=== PATIENT | male | born 1960 | race Caucasian/White ===

== ENCOUNTER 2017-08-07 04:11 | Observation (INO) | payer OTHER ==
[2017-08-07] MEDS ORDERED: HYOSCYAMINE SULFATE ODT 0.125 MG TAB.SUBL SL ONE (04:30)
[2017-08-07] MEDS: 0.9 % SODIUM CHLORIDE 1000ML 1,000 ML IV SCH ×2 (04:30→05:32)
[2017-08-07] MEDS ORDERED: ONDANSETRON HCL IV 4 MG/2 ML VIAL IVP ONE (04:30)
--- NOTE | 2017-08-07 04:37 | Emergency Department Record ---
History of Present Illness - General Chief Complaint: Abdominal Pain Stated Complaint: VOMITING Time Seen by Provider: 08/07/17 04:29 Source: Patient Mode of Arrival: Ambulatory Limitations: No limitations - History of Present Illness Initial Comments: 56 yo male presents to ED for evaluation of nausea, vomiting, and loose stools that began last night after eating chili. Patient reports subjective chills, denies fever symptoms, cough, or recent illness. Patient denies health problems at his baseline, denies chest pain or difficulty breathing. Patient does report abdominal pain symptoms, denies previous abdominal surgery. MD Complaint: Abdominal pain Onset/Timin -: Hour(s) Location: Diffuse Radiation: None Migration to: No migration Severity: Moderate Quality: Cramping Consistency: Constant Improves With: Nothing Worsens With: Nothing Context: Other Associated Symptoms: Nausea, Vomiting - Related Data Home Medications Medication Instructions Recorded Confirmed Last Taken No Home Med [NO HOME MEDS] 08/07/17 08/07/17 Unknown Allergies Allergy/AdvReac Type Severity Reaction Status Date / Time No Known Drug Allergies Allergy Verified 08/07/17 04:23 Travel Screening - Travel/Exposure Within Last 30 Days Have you traveled within the last 30 days?: No - Travel Symptoms Symptom Screening: Diarrhea Review of Systems Constitutional: Denies: Chills, Fever, Malaise, Night sweats Eyes: Denies: Eye discharge, Eye pain ENT: Denies: Congestion, Ear pain, Epistaxis Respiratory: Denies: Cough, Dyspnea Cardiovascular: Denies: Chest pain, Dyspnea on exertion Endocrine: Denies: Fatigue, Heat or cold intolerance Gastrointestinal: Reports: Abdominal pain, Nausea, Vomiting Genitourinary: Denies: Incontinence, Retention Musculoskeletal: Denies: Arthralgia, Back pain Skin: Denies: Bruising, Change in color Neurological: Denies: Abnormal gait, Confusion, Headache, Seizure Psychiatric: Denies: Anxiety Hematological/Lymphatic: Denies: Anemia, Blood Clots Past Medical History - SOCIAL HISTORY Smoking Status: Former smoker Alcohol Use: Occasional Drug Use: Heavy Drug Use Detail:: Marijuana - RESPIRATORY Hx Respiratory Disorders: No - CARDIOVASCULAR Hx Cardio Disorders: No - NEURO Hx Neuro Disorders: No - GI Hx GI Disorders: No - Hx Genitourinary Disorders: No - ENDOCRINE Hx Endocrine Disorders: No - MUSCULOSKELETAL Hx Musculoskeletal Disorders: No - PSYCH Hx Psych Problems: No - HEMATOLOGY/ONCOLOGY Hx Hematology/Oncology Disorders: No Family Medical History Any Significant Family History?: No Physical Exam - General General Appearance: Alert, Oriented x3, Cooperative, Moderate distress, Other ( Patient appears diaphorectic on examination, resting tremor on examination) Limitations: No limitations - Head Head exam: Atraumatic, Normocephalic, Normal inspection Head exam detail: negative: Abrasion, Contusion, Carlisle's sign, General tenderness, Hematoma, Laceration - Eye Eye exam: Normal appearance. negative: Conjunctival injection, Periorbital swelling, Periorbital tenderness, Scleral icterus - ENT Ear exam: negative: Auricular hematoma, Auricular trauma Nasal Exam: negative: Active bleeding, Discharge, Dried blood, Foreign body Mouth exam: negative: Drooling, Laceration, Muffled voice, Tongue elevation - Neck Neck exam: Normal inspection. negative: Meningismus, Tenderness - Respiratory Respiratory exam: Normal lung sounds bilaterally. negative: Rales, Respiratory distress, Rhonchi, Stridor - Cardiovascular Cardiovascular Exam: Regular rate, Normal rhythm, Normal heart sounds - GI/Abdominal GI/Abdominal exam: Soft, Tenderness (Diffuse TTP, no rebound or guarding present on examination). negative: Rebound, Rigid - Rectal Rectal exam: Deferred - exam: Deferred - Extremities Extremities exam: Normal inspection. negative: Calf tenderness, Pedal edema, Tenderness - Back Back exam: Denies: CVA tenderness (R), CVA tenderness (L) - Neurological Neurological exam: Alert, Normal gait, Oriented X3 - Psychiatric Psychiatric exam: Normal affect, Normal mood - Skin Skin exam: Normal color. negative: Abrasion Type of lesion: negative: abrasion Course - Reevaluation(s) Reevaluation #1: 08/07/17 04:47 EKG: NSR 67 Normal axis, normal intervals No acute ST-T wave changes Reevaluation #2: 08/07/17 05:12 Labs reviewed, Lipase 271, labs are otherwise grossly unremarkable for an acute process. Patient is currently in CT imaging. Reevaluation #3: 08/07/17 05:41 UA reviewed and appears negative for infection. Reglan and Benadryl ordered for continued nausea/vomiting symptoms. Reevaluation #4: 08/07/17 06:04 CT Abdomen and Pelvis: Fat containing inguinal hernia, no bowel involvement Mild wall thickening of the colon, colon is relatively decompressed Patient reassessed, reports that he is still nauseated, vomiting improved. Will admit for further evaluation and treatment of his continued nausea symptoms. Reevaluation #5: 08/07/17 06:48 Case was discussed with Etelvina Barber, will accept admission at this time. Medical Decision Making - Lab Data Result diagrams: 08/07/17 04:30 08/07/17 04:30 Disposition Disposition: Admit Clinical Impression: Nausea & vomiting Qualifiers: Vomiting type: unspecified Vomiting Intractability: intractable Qualified Code( s): R11.2 - Nausea with vomiting, unspecified Pancreatitis Qualifiers: Chronicity: acute Pancreatitis type: other Acute pancreatitis complication: unspecified Qualified Code(s): K85.80 - Other acute pancreatitis without necrosis or infection Disposition: Still a Patient at [facility] Decision to Admit: Admit from ER Decision to Admit Date: 08/07/17 Decision to Admit Time: 06:08 Condition: (2) Stable Time of Disposition: 06:08 Quality - Quality Measures Quality Measures: N/A - Blood Pressure Screening Does Patient Have Any of the Following: No Blood Pressure Classification: Hypertensive Reading Systolic Measurement: 165 Diastolic Measurement: 101 Screening for High Blood Pressure: < First Hypertensive BP, F/U Documented > [ [id number]] First Hypertensive Follow-up Interventions: Referral to alternative/primary care provider.
[2017-08-07 04:38] LABS: BASO % 0.3 % (0-6); EOS % 1.6 % (0-6); GRAN % 74.7 % (47-80); LYMPH % 16.5 % (16-45); MEAN CELL VOLUME 87.9 fl (81-97); MEAN CORPUSCULAR HEMOGLOBIN 29.9 pg (27-33); MEAN PLATELET VOLUME 9.3 fl (7.4-10.4); MONO % 6.9 % (0-9); PLATELET COUNT 372 K/uL (130-400); RED BLOOD COUNT 5.35 M/uL (4.40-5.70); RED CELL DISTRIBUTION WIDTH 13.5 % (11.5-14.5); WHITE BLOOD COUNT W/O DIFF 11.1 K/uL (4.2-12.2)
[2017-08-07 04:51] LABS: BLOOD UREA NITROGEN 17 mg/dL (6-20); CREATININE 1.1 mg/dL (0.7-1.2); EST GLOMERULAR FILTRATION RATE > 60 mL/min
[2017-08-07 04:52] LABS: TOTAL PROTEIN 7.3 g/dL (6.6-8.7)
[2017-08-07 04:54] LABS: GLUCOSE,RANDOM 153 mg/dL (74-109)
[2017-08-07 04:56] LABS: ALT/SGPT 14 U/L (<41)
[2017-08-07 04:57] LABS: ALB/GLOB RATIO 1.9 (1.1-1.8); ALBUMIN 4.8 g/dL (4.0-5.0); ALKALINE PHOSPHATASE 64 U/L (40-129); AST/SGOT 15 U/L (10.0-50.0); LIPASE 271 U/L (13-60)
[2017-08-07] MEDS ORDERED: 0.9 % SODIUM CHLORIDE 1000ML 1,000 ML IV SCH (05:15)
[2017-08-07 05:18] LABS: URINE APPEARANCE CLOUDY; URINE BILIRUBIN NEGATIVE (NEGATIVE); URINE COLOR YELLOW; URINE GLUCOSE (UA) NEGATIVE (NEGATIVE); URINE KETONE TRACE (NEGATIVE); URINE PROTEIN NEGATIVE (NEGATIVE); URINE UROBILINOGEN 0.2 E.U./dL (0.20 - 1.00)
[2017-08-07 05:19] LABS: URINE BLOOD TRACE-LYSED (NEGATIVE); URINE LEUKOCYTE ESTERASE NEGATIVE (NEGATIVE); URINE NITRITE NEGATIVE (NEGATIVE)
[2017-08-07 05:21] LABS: URINE EPITHELIAL CELLS 0 - 2 (FEW); URINE RBC 0 - 2 (NONE SEEN); URINE WBC 0 - 2 (0-2/hpf)
[2017-08-07 05:22] LABS: URINE AMORPHOUS SEDIMENT 1+; URINE BACTERIA NONE SEEN
[2017-08-07] MEDS ORDERED: DIPHENHYDRAMINE HCL IV 50 MG/ML VIAL IVP ONE (05:33)
[2017-08-07] MEDS ORDERED: METOCLOPRAMIDE HCL 10 MG/2 ML VIAL IVP ONE (05:33)
--- NOTE | 2017-08-07 07:48 | History & Physical ---
History of Present Illness - Date of Service Date of Service for History & Physical: 08/07/17 - History of Present Illness Admitting Diagnosis: Intractable nausea/vomiting. Mild pancreatitis History of Present Illness: 56yo male with CC of nausea and vomiting. He has history of marijuana use and occasional etoh use. Patient presented to the ED last night with intractable nausea and multiple episodes of vomiting. He had one episode of loose stool and was having generalized stomach cramping. Patient felt his symptoms were related to some bad chili he had eaten about 12 hours prior. While in the ED, Patient had EKG that showed NSR with rate of [address] changes. BP was elevated at 162/109. He had CBC and CMP which were both unremarkable. His lipase was elevated at 270. He underwent CT scan of the abdomen which showed possible mild thickening of the colon wall vs decreased distension. NO oral contrast was utilized. No other acute abnormalities. He received zofran, reglan, hyocosamine, and bendadryl with minimal relief of his vomiting. He was admitted for intractable nausea. 08/07/17- Patient states he continues to have diffuse stomach cramping that is beginning to localize in the left upper part of his abdomen. He reports chills but no fever. He states he did have another bowel movement last night about 2am that was loose, but he did not look to see if it had blood. He has had several more episodes of vomiting throughout the night, but none since this morning. He says his nausea is actually starting to improve but the pain is worse. He last drank about 5 days ago and had 3 beers. Had not had anything prior to that since July 22. Does use marijuana. denies h/o pancreatitis, GERD, ulcer or diverticulitis. pcp: Travel Screening - Travel/Exposure Within Last 30 Days Have you traveled within the last 30 days?: No - Travel/Exposure Within Last Year Have you traveled outside the [place] in the last year?: No - Additonal Travel Details Have you been exposed to anyone with a communicable illness?: No - Travel Symptoms Symptom Screening: Diarrhea Review of Systems Constitutional: Denies: Chills, Fever, Malaise, Night sweats Eyes: Denies: Eye discharge, Eye pain ENT: Denies: Congestion, Ear pain, Epistaxis Respiratory: Denies: Cough, Dyspnea Cardiovascular: Denies: Chest pain, Dyspnea on exertion Endocrine: Denies: Fatigue, Heat or cold intolerance Gastrointestinal: Reports: Abdominal pain, Nausea, Vomiting Genitourinary: Denies: Incontinence, Retention Musculoskeletal: Denies: Arthralgia, Back pain Skin: Denies: Bruising, Change in color Neurological: Denies: Abnormal gait, Confusion, Headache, Seizure Psychiatric: Denies: Anxiety Hematological/Lymphatic: Denies: Anemia, Blood Clots Past Medical History - SOCIAL HISTORY Smoking Status: Former smoker Alcohol Use: Occasional Drug Use: Heavy Drug Use Detail:: Marijuana - RESPIRATORY Hx Respiratory Disorders: No - CARDIOVASCULAR Hx Cardio Disorders: No - NEURO Hx Neuro Disorders: No - GI Hx GI Disorders: No - Hx Genitourinary Disorders: No - ENDOCRINE Hx Endocrine Disorders: No - MUSCULOSKELETAL Hx Musculoskeletal Disorders: No - PSYCH Hx Psych Problems: No - HEMATOLOGY/ONCOLOGY Hx Hematology/Oncology Disorders: No Family Medical History Any Significant Family History?: No H&P Meds/Allergies - Allergies Allergies: Allergies Allergy/AdvReac Type Severity Reaction Status Date / Time No Known Drug Allergies Allergy Verified 08/07/17 04:23 - Home Medications Home Medications Medication Instructions Recorded Confirmed Last Taken No Home Med [NO HOME MEDS] 08/07/17 08/07/17 Unknown - Active Medications Active Medications: Current Medications Hyoscyamine (Levsin Odt) 0.25 mg SL Q4H PRN PRN Reason: Abdominal Pain Sodium Chloride () 1,000 mls @ 125 mls/hr IV .Q8H PRN PRN Reason: LARGE VOLUME IV Ondansetron HCl (Zofran) 4 mg IVP Q4H PRN PRN Reason: NAUSEA Physical Exam - Vital Signs Vital Signs: Vital Signs - Last 24 Hrs Temp Pulse Pulse Resp BP BP Pulse Ox 08/07/17 06:44 99.9 F H 76 16 162/90 98 08/07/17 06:32 98.6 F 62 20 165/101 100 - General General Appearance: Alert, Oriented x3, Cooperative, Moderate distress, Other ( Patient appears diaphorectic on examination, resting tremor on examination) Limitations: No limitations - Head Head exam: Atraumatic, Normocephalic, Normal inspection Head exam detail: negative: Abrasion, Contusion, Carlisle's sign, General tenderness, Hematoma, Laceration - Eye Eye exam: Normal appearance. negative: Conjunctival injection, Periorbital swelling, Periorbital tenderness, Scleral icterus - ENT Ear exam: negative: Auricular hematoma, Auricular trauma Nasal Exam: negative: Active bleeding, Discharge, Dried blood, Foreign body Mouth exam: negative: Drooling, Laceration, Muffled voice, Tongue elevation - Neck Neck exam: Normal inspection. negative: Meningismus, Tenderness - Respiratory Respiratory exam: Normal lung sounds bilaterally. negative: Rales, Respiratory distress, Rhonchi, Stridor - Cardiovascular Cardiovascular Exam: Regular rate, Normal rhythm, Normal heart sounds - GI/Abdominal GI/Abdominal exam: Soft, Tenderness (Diffuse TTP, no rebound or guarding present on examination). negative: Rebound, Rigid - Rectal Rectal exam: Deferred - exam: Deferred - Extremities Extremities exam: Normal inspection. negative: Calf tenderness, Pedal edema, Tenderness - Back Back exam: Denies: CVA tenderness (R), CVA tenderness (L) - Neurological Neurological exam: Alert, Normal gait, Oriented X3 - Psychiatric Psychiatric exam: Normal affect, Normal mood - Skin Skin exam: Normal color. negative: Abrasion Type of lesion: negative: abrasion Results - Labs Result Diagrams: 08/07/17 04:30 08/07/17 04:30 - Imaging and Cardiology CT scan - abdomen Status: Report reviewed VTE H&P Assessment - Risk for VTE Risk for VTE: Yes Risk Level: Moderate Risk Assessment Date: 08/07/17 Risk Assessment Time: 07:47 VTE Orders Placed or Will Be Placed: Yes Plan - Detailed Diagnosis and Plan (1) Intractable nausea and vomiting Current Visit: Yes Status: Acute Base Code: R11.2 - NAUSEA WITH VOMITING, UNSPECIFIED Comment: 08/07/17- nausea improving. CT abdomen without abnormalities of the GB, liver or pancreas. There was some questionable mild thickening of the colon wall vs incomplete distension. Study limited by lack of oral contrast. Lipase of 270. -gastroenteritis vs pancreatitis vs mild colitis? -continue IV NS 125cc/hr -will do trial of compazine 5mg IV q4H prn nausea -continue npo until pain improves -had one episode of loose stool. will order stool studies if he has further episodes of diarrhea -vitals q8H -protonix 40mg IV daily for GI prophylaxis (2) Elevated BP without diagnosis of hypertension Current Visit: Yes Status: Acute Base Code: R03.0 - ELEVATED BLOOD-PRESSURE READING, W/O DIAGNOSIS OF HTN Comment: 08/07/17- Patient denies h/o HTN and not currently on medications. Patient currently 6/10 pain and may be contributing. -continue monitoring for now and determine need for htn agent (3) Full code status Current Visit: Yes Status: Acute Base Code: Z78.9 - OTHER SPECIFIED HEALTH STATUS Comment: 08/07/17- patient is full code (4) DVT prophylaxis Current Visit: Yes Status: Acute Base Code: [id number] - Comment: 08/07/17- patient is moderate risk with age and restricted mobility. -lovenox 40mg sq daily
[2017-08-07] MEDS: ONDANSETRON HCL IV 4 MG/2 ML VIAL IVP PRN ×2 (08:21→13:33)
[2017-08-07] MEDS: HYOSCYAMINE SULFATE ODT 0.125 MG TAB.SUBL SL PRN ×2 (08:21→13:32)
[2017-08-07] MEDS ORDERED: PROCHLORPERAZINE 10 MG/2 ML VIAL IVP PRN (09:27)
[2017-08-07] MEDS: MORPHINE SULFATE 5 MG/ML PFS IVP PRN ×2 (10:08→14:51)
--- NOTE | 2017-08-07 10:53 | CT SCAN REPORT ---
EXAM: CT OF THE ABDOMEN AND PELVIS WITH CONTRAST HISTORY: ABDOMINAL PAIN, THROWING UP. PATIENT STATES HE IS A HEAVY DRINKER. TECHNIQUE: Axial CT scan of the abdomen and pelvis was performed following the intravenous administration of 100 ml of Omnipaque 300 as the IV contrast. No oral contrast was utilized at the referring physician's request. A preliminary report was provided by [facility]. Comparison: None. FINDINGS: No calcified gallstones are seen within the gallbladder. No definite hepatic, splenic, adrenal, pancreatic, or renal mass identified. There is a moderately large right inguinal hernia containing adipose tissue, but no bowel. Evaluation of the bowel is limited by the lack of oral contrast. The appendix is visualized and appears negative. Some segments of the colon have a mildly thick walled appearance. This may just be due to incomplete distention although a mild colitis could not absolutely be excluded and clinical correlation is suggested. The lung bases appear clear. No free intraperitoneal air or free intraperitoneal fluid identified. Small periumbilical anterior abdominal wall hernia containing adipose tissue, but no bowel. IMPRESSION: 1. RIGHT INGUINAL HERNIA CONTAINING ADIPOSE TISSUE, BUT NO BOWEL. 2. SMALL PERIUMBILICAL ANTERIOR ABDOMINAL WALL HERNIA ALSO CONTAINING ADIPOSE TISSUE, BUT NO BOWEL. 3. SEGMENTS OF THE COLON HAVE A MILDLY THICK WALLED APPEARANCE, NONSPECIFIC. CLINICAL CORRELATION TO ANY EVIDENCE OF COLITIS SUGGESTED. 4. NO APPENDICITIS EVIDENT. NO FREE AIR OR FREE FLUID EVIDENT. JOB NUMBER: [id number] MTDD
[2017-08-07] MEDS: PANTOPRAZOLE SODIUM IV 40 MG VIAL IVP SCH (11:50)
[2017-08-07] MEDS: 0.9 % SODIUM CHLORIDE 1000ML 1,000 ML IV PRN (19:04)
[2017-08-08] MEDS: 0.9 % SODIUM CHLORIDE 1000ML 1,000 ML IV PRN (03:27)
[2017-08-08] MEDS ORDERED: ACETAMINOPHEN 500 MG TABLET PO PRN (05:44)
--- NOTE | 2017-08-08 07:29 | Physician Progress Note ---
Subjective - Date Date of Physician Progress Note: 08/08/17 Objective - Vital Signs Vital Signs: Vital Signs - Last 24 Hrs Temp Pulse Resp BP BP Pulse Ox 08/08/17 06:00 98.2 F 71 18 129/78 96 08/07/17 21:47 99 F 72 18 100/61 97 08/07/17 14:34 100.5 F H 65 18 152/87 99 08/07/17 09:00 76 16 - General General Appearance: Alert, Oriented x3, Cooperative, Moderate distress, Other ( Patient appears diaphorectic on examination, resting tremor on examination) Limitations: No limitations - Head Head exam: Atraumatic, Normocephalic, Normal inspection Head exam detail: negative: Abrasion, Contusion, Carlisle's sign, General tenderness, Hematoma, Laceration - Eye Eye exam: Normal appearance. negative: Conjunctival injection, Periorbital swelling, Periorbital tenderness, Scleral icterus - ENT Ear exam: negative: Auricular hematoma, Auricular trauma Nasal Exam: negative: Active bleeding, Discharge, Dried blood, Foreign body Mouth exam: negative: Drooling, Laceration, Muffled voice, Tongue elevation - Neck Neck exam: Normal inspection. negative: Meningismus, Tenderness - Respiratory Respiratory exam: Normal lung sounds bilaterally. negative: Rales, Respiratory distress, Rhonchi, Stridor - Cardiovascular Cardiovascular Exam: Regular rate, Normal rhythm, Normal heart sounds - GI/Abdominal GI/Abdominal exam: Soft, Tenderness (Diffuse TTP, no rebound or guarding present on examination). negative: Rebound, Rigid - Rectal Rectal exam: Deferred - exam: Deferred - Extremities Extremities exam: Normal inspection. negative: Calf tenderness, Pedal edema, Tenderness - Back Back exam: Denies: CVA tenderness (R), CVA tenderness (L) - Neurological Neurological exam: Alert, Normal gait, Oriented X3 - Psychiatric Psychiatric exam: Normal affect, Normal mood - Skin Skin exam: Normal color. negative: Abrasion Type of lesion: negative: abrasion Assessment and Plan - Assessment and Plan (1) Intractable nausea and vomiting Current Visit: Yes Status: Acute Base Code: R11.2 - NAUSEA WITH VOMITING, UNSPECIFIED Comment: 08/07/17- nausea improving. CT abdomen without abnormalities of the GB, liver or pancreas. There was some questionable mild thickening of the colon wall vs incomplete distension. Study limited by lack of oral contrast. Lipase of 270. -gastroenteritis vs pancreatitis vs mild colitis? -continue IV NS 125cc/hr -will do trial of compazine 5mg IV q4H prn nausea -continue npo until pain improves -had one episode of loose stool. will order stool studies if he has further episodes of diarrhea -vitals q8H -protonix 40mg IV daily for GI prophylaxis (2) Elevated BP without diagnosis of hypertension Current Visit: Yes Status: Acute Base Code: R03.0 - ELEVATED BLOOD-PRESSURE READING, W/O DIAGNOSIS OF HTN Comment: 08/07/17- Patient denies h/o HTN and not currently on medications. Patient currently 6/10 pain and may be contributing. -continue monitoring for now and determine need for htn agent (3) Full code status Current Visit: Yes Status: Acute Base Code: Z78.9 - OTHER SPECIFIED HEALTH STATUS Comment: 08/07/17- patient is full code (4) DVT prophylaxis Current Visit: Yes Status: Acute Base Code: [id number] - Comment: 08/07/17- patient is moderate risk with age and restricted mobility. -lovenox 40mg sq daily Results - Labs Result Diagrams: 08/07/17 04:30 08/07/17 04:30 DVT/PE Assessment - Risk for VTE Risk for VTE: No Risk Level: Moderate Risk Assessment Date: 08/07/17 Risk Assessment Time: 07:47 VTE Orders Placed or Will Be Placed: Yes - Active Medicaitons Current Medications: Current Medications Acetaminophen (Tylenol 500mg Tab) 1,000 mg PO Q8H PRN PRN Reason: HEADACHE Last Admin: 08/08/17 05:47 Dose: 1,000 mg Enoxaparin Sodium (Lovenox) 40 mg SQ DAILY DHRUV Hyoscyamine (Levsin Odt) 0.25 mg SL Q4H PRN PRN Reason: Abdominal Pain Last Admin: 08/07/17 13:32 Dose: 0.25 mg Sodium Chloride () 1,000 mls @ 125 mls/hr IV .Q8H PRN PRN Reason: LARGE VOLUME IV Last Admin: 08/08/17 03:27 Dose: 125 mls/hr Morphine Sulfate (Morphine Sulfate) 2 mg IVP Q4H PRN PRN Reason: Abdominal Pain Stop: 08/14/17 09:29 Last Admin: 08/07/17 14:51 Dose: 2 mg Ondansetron HCl (Zofran) 4 mg IVP Q4H PRN PRN Reason: NAUSEA Last Admin: 08/07/17 13:33 Dose: 4 mg Pantoprazole Sodium (Protonix Iv) 40 mg IVP Q24H DHRUV Last Admin: 08/07/17 11:50 Dose: 40 mg Prochlorperazine Edisylate (Compazine) 5 mg IVP Q4H PRN PRN Reason: NAUSEA Last Admin: 08/07/17 09:47 Dose: 5 mg AMI Plan - Labs Result Diagrams: 08/07/17 04:30 08/07/17 04:30
[2017-08-08 07:54] LABS: BASO % 0.2 % (0-6); EOS % 0.7 % (0-6); GRAN % 74.7 % (47-80); HEMATOCRIT 46.3 % (42.0-52.0); HEMOGLOBIN 14.8 gm/dl (14.0-18.0); LYMPH % 15.4 % (16-45); MEAN CELL VOLUME 88.7 fl (81-97); MEAN CORPUSCULAR HEMOGLOBIN 28.4 pg (27-33); MEAN PLATELET VOLUME 9.1 fl (7.4-10.4); PLATELET COUNT 333 K/uL (130-400); RED BLOOD COUNT 5.22 M/uL (4.40-5.70); RED CELL DISTRIBUTION WIDTH 13.6 % (11.5-14.5); WHITE BLOOD COUNT W/O DIFF 10.8 K/uL (4.2-12.2)
[2017-08-08 07:56] LABS: BLOOD UREA NITROGEN 14 mg/dL (6-20); CREATININE 0.9 mg/dL (0.7-1.2); EST GLOMERULAR FILTRATION RATE > 60 mL/min
[2017-08-08 07:57] LABS: TOTAL PROTEIN 5.9 g/dL (6.6-8.7)
[2017-08-08 07:59] LABS: GLUCOSE,RANDOM 101 mg/dL (74-109)
[2017-08-08 08:01] LABS: ALBUMIN 3.9 g/dL (4.0-5.0); ALKALINE PHOSPHATASE 52 U/L (40-129); ALT/SGPT 9 U/L (<41); AST/SGOT 12 U/L (10.0-50.0)
[2017-08-08 08:02] LABS: LIPASE 43 U/L (13-60)
--- NOTE | 2017-08-08 09:17 | Discharge Summary ---
<Zoe Luciano - Last Filed: 08/08/17 09:08> Providers Discharge Summary Date: 08/08/17 Date of admission: 08/07/17 06:23 Expected Date of Discharge: 08/08/17 Attending physician: JORDAN MCINTYRE Primary care physician: MAYA PATTON D.O. Physical Exam - Vital Signs Vital Signs: Vital Signs - Last 24 Hrs Temp Pulse Resp BP BP Pulse Ox 08/08/17 06:00 98.2 F 71 18 129/78 96 08/07/17 21:47 99 F 72 18 100/61 97 08/07/17 14:34 100.5 F H 65 18 152/87 99 - General General Appearance: Alert, Oriented x3, Cooperative, No acute distress, Other ( Patient appears diaphorectic on examination, resting tremor on examination) Limitations: No limitations - Head Head exam: Atraumatic, Normocephalic, Normal inspection Head exam detail: negative: Abrasion, Contusion, Carlisle's sign, General tenderness, Hematoma, Laceration - Eye Eye exam: Normal appearance. negative: Conjunctival injection, Periorbital swelling, Periorbital tenderness, Scleral icterus - ENT Ear exam: negative: Auricular hematoma, Auricular trauma Nasal Exam: negative: Active bleeding, Discharge, Dried blood, Foreign body Mouth exam: negative: Drooling, Laceration, Muffled voice, Tongue elevation - Neck Neck exam: Normal inspection. negative: Meningismus, Tenderness - Respiratory Respiratory exam: Normal lung sounds bilaterally. negative: Rales, Respiratory distress, Rhonchi, Stridor - Cardiovascular Cardiovascular Exam: Regular rate, Normal rhythm, Normal heart sounds Peripheral Pulses: 2+: Radial (R), Radial (L), Dorsalis Pedis (R), Dorsalis Pedis (L) - GI/Abdominal GI/Abdominal exam: Soft, Tenderness (Diffuse TTP, no rebound or guarding present on examination). negative: Rebound, Rigid - Rectal Rectal exam: Deferred - exam: Deferred - Extremities Extremities exam: Normal inspection. negative: Calf tenderness, Pedal edema, Tenderness - Back Back exam: Denies: CVA tenderness (R), CVA tenderness (L) - Neurological Neurological exam: Alert, Normal gait, Oriented X3 - Psychiatric Psychiatric exam: Normal affect, Normal mood - Skin Skin exam: Normal color. negative: Abrasion Type of lesion: negative: abrasion Hospitalization - Hospitalization Admission Diagnosis: Intractable nausea/vomiting. Mild pancreatitis - Problem List/Discharge Diagnosis (1) Intractable nausea and vomiting Current Visit: Yes Status: Resolved Base Code: R11.2 - NAUSEA WITH VOMITING , UNSPECIFIED Comment: 08/07/17- nausea improving. CT abdomen without abnormalities of the GB, liver or pancreas. There was some questionable mild thickening of the colon wall vs incomplete distension. Study limited by lack of oral contrast. Lipase of 270. -gastroenteritis vs pancreatitis vs mild colitis? -continue IV NS 125cc/hr -will do trial of compazine 5mg IV q4H prn nausea 08/08/17 -pt tolerating CLD, reports hunger and thrist -making urine and reports chronic loose stool (baseline) -denies abd pain, no pain medications this AM -less tender to palpation, no LUQ pain -VSS -D/C today -continue npo until pain improves -had one episode of loose stool. will order stool studies if he has further episodes of diarrhea -vitals q8H -protonix 40mg IV daily for GI prophylaxis (2) Elevated BP without diagnosis of hypertension Current Visit: Yes Status: Resolved Base Code: R03.0 - ELEVATED BLOOD- PRESSURE READING, W/O DIAGNOSIS OF HTN Comment: 08/07/17- Patient denies h/o HTN and not currently on medications. Patient currently 6/10 pain and may be contributing. -continue monitoring for now and determine need for htn agent 08/08/17 -BP normalized -pt to f/u with PCP -pt reports no pain (3) Full code status Current Visit: Yes Status: Acute Base Code: Z78.9 - OTHER SPECIFIED HEALTH STATUS Comment: 08/07/17- patient is full code 08/08/17- full code (4) DVT prophylaxis Current Visit: Yes Status: Acute Base Code: [id number] - Comment: 08/07/17- patient is moderate risk with age and restricted mobility. -lovenox 40mg sq daily 08/08/17 -D/C today -d/c lovenox - Disposition Continue clear liquid diet and progress slowly up to soft food and then regular diet when tolerated. Prescription for Zofran 4mg ODT (under the tongue) and Prilosec 20mg sent to [facility] Use the Zofran every 8 hours as needed for nausea. take the Prilosec daily in the AM, 30 mins before eating. Given 1 month supply, follow up with PCP for continued medication. Follow up appt with PCP - Hospitalization Course Disposition: Home, Self-Care Hospital Course: 56yo male with CC of nausea and vomiting. He has history of marijuana use and occasional etoh use. Patient presented to the ED last night with intractable nausea and multiple episodes of vomiting. He had one episode of loose stool and was having generalized stomach cramping. Patient felt his symptoms were related to some bad chili he had eaten about 12 hours prior. While in the ED, Patient had EKG that showed NSR with rate of [address] changes. BP was elevated at 162/109. He had CBC and CMP which were both unremarkable. His lipase was elevated at 270. He underwent CT scan of the abdomen which showed possible mild thickening of the colon wall vs decreased distension. NO oral contrast was utilized. No other acute abnormalities. He received zofran, reglan, hyocosamine, and bendadryl with minimal relief of his vomiting. He was admitted for intractable nausea. 08/07/17- Patient states he continues to have diffuse stomach cramping that is beginning to localize in the left upper part of his abdomen. He reports chills but no fever. He states he did have another bowel movement last night about 2am that was loose, but he did not look to see if it had blood. He has had several more episodes of vomiting throughout the night, but none since this morning. He says his nausea is actually starting to improve but the pain is worse. He last drank about 5 days ago and had 3 beers. Had not had anything prior to that since July 22. Does use marijuana. denies h/o pancreatitis, GERD, ulcer or diverticulitis. pcp: Abnormal Labs: Abnormal Lab Results 08/08/17 08/08/17 Range/Units 07:40 07:40 Lymphocytes % 15.4 L (16-45) % Total Protein 5.9 L (6.6-8.7) g/dL Albumin 3.9 L (4.0-5.0) g/dL Albumin/Globulin Ratio 2.0 H (1.1-1.8) Condition at Discharge: (2) Stable Discharge Diagnosis: gastroenterisi, mild pancreatitis Discharge Medications - Discharge Medications Prescriptions: Omeprazole Magnesium [Prilosec Otc] 20 mg PO DAILY #30 tab. Ondansetron [Zofran Odt] 4 mg PO Q8H PRN #10 tab.rapdis PRN Reason: Nausea Home Medications: Ambulatory Orders Omeprazole Magnesium [Prilosec Otc] 20 mg PO DAILY #30 tab. 08/08/17 [Last Taken Unknown] Ondansetron [Zofran Odt] 4 mg PO Q8H PRN #10 tab.rapdis 08/08/17 [Last Taken Unknown] Discharge Plan - Discharge Instructions Activity at Discharge: Increase Activity as Tolerated Diet at Discharge: Advance to Usual Diet Instructions: Pancreatitis (DC), Acute Nausea and Vomiting (ED) Additional Instructions: Follow up with pcp in 7-10 days Continue clear liquid diet and may slowly advance to soft, bland diet as tolerating. May use the zofran as needed for nausea Please call with any questions or concerns Return to ED for any new or worsening symptoms Quality Measures - Quality Measures Quality Measures: Documentation of Current Medications in Medical Record, Screening for High Blood Pressure and F/U Documented - Current Medications Quality Measure: Measure #130: Documentation of Current Medications - Blood Pressure Screening Quality Measure: Screening for High Blood Pressure and Follow-Up Documented Does Patient Have Any of the Following: No Blood Pressure Classification: Hypertensive Reading Systolic Measurement: 165 Diastolic Measurement: 101 Screening for High Blood Pressure: < Normal BP, F/U Not Required > [G8783] - Elder Abuse Suspicion Index EASI Reference Information: Yury CORDON, Feliciano C, Hugo D, Salima M.Development and validation of a tool to assist physicians identification of elder abuse: The Elder Abuse Suspicion Index (EASI ). Journal of Elder Abuse and Neglect, 2008; 20 (3): 276-300. <Etelvina Maya - Last Filed: 08/08/17 10:46> Providers Date of admission: 08/07/17 06:23 Attending physician: JORDAN MCINTYRE Primary care physician: MAYA PATTON D.O. Physical Exam - Vital Signs Vital Signs: Vital Signs - Last 24 Hrs Temp Pulse Resp BP BP Pulse Ox 08/08/17 09:06 98.1 F 65 18 155/96 99 08/08/17 06:00 98.2 F 71 18 129/78 96 08/07/17 21:47 99 F 72 18 100/61 97 08/07/17 14:34 100.5 F H 65 18 152/87 99 - GI/Abdominal GI/Abdominal exam: Normal bowel sounds. negative: Tenderness Hospitalization - Problem List/Discharge Diagnosis (1) Intractable nausea and vomiting Current Visit: Yes Status: Resolved Base Code: R11.2 - NAUSEA WITH VOMITING , UNSPECIFIED Comment: 08/07/17- CT abdomen without abnormalities of the GB, liver or pancreas. There was some questionable mild thickening of the colon wall vs incomplete distension. Study limited by lack of oral contrast. Lipase of 270. -gastroenteritis vs pancreatitis vs mild colitis? -continue IV NS 125cc/hr -will do trial of compazine 5mg IV q4H prn nausea 08/08/17-resolved. -pt tolerating CLD, reports hunger and thrist. denies abd pain, no pain medications since yesterday afternoon and nausea has resolved. -will plan to discharge home today. Patient educated on BRAT diet and will continue to advance as tolerating. -binu sent to pharmacy -will have him follow up with pcp in 7-10 days (2) Elevated BP without diagnosis of hypertension Current Visit: Yes Status: Resolved Base Code: R03.0 - ELEVATED BLOOD- PRESSURE READING, W/O DIAGNOSIS OF HTN Comment: 08/07/17- Patient denies h/o HTN and not currently on medications. Patient currently 6/10 pain and may be contributing. -continue monitoring for now and determine need for htn agent 08/08/17 -BP normalized -pt to f/u with PCP -pt reports no pain (3) Full code status Current Visit: Yes Status: Acute Base Code: Z78.9 - OTHER SPECIFIED HEALTH STATUS Comment: 08/07/17- patient is full code 08/08/17- full code (4) DVT prophylaxis Current Visit: Yes Status: Acute Base Code: [id number] - Comment: 08/07/17- patient is moderate risk with age and restricted mobility. -lovenox 40mg sq daily 08/08/17 -D/C today -d/c lovenox - Hospitalization Course Hospital Course: 08/08/17- Patient states he feels much better today. Has not had any abdominal pain or nausea since yesterday afternoon. He is tolerating clear liquid diet without issue. No bowel movement today. Denies abdominal cramping, fever, and chills have resolved. he has been up and ambulating to the bathroom several times this morning to urinate without problems. He is feeling ready to go home. pcp: Dr. Patton Abnormal Labs: Abnormal Lab Results 08/08/17 08/08/17 Range/Units 07:40 07:40 Lymphocytes % 15.4 L (16-45) % Total Protein 5.9 L (6.6-8.7) g/dL Albumin 3.9 L (4.0-5.0) g/dL Albumin/Globulin Ratio 2.0 H (1.1-1.8) Quality Measures - Quality Measures Quality Measures: Documentation of Current Medications in Medical Record, Screening for High Blood Pressure and F/U Documented - Current Medications Quality Measure: Measure #130: Documentation of Current Medications Documentation of Current Medications: <Current Medications Documented/Reviewed> [G8427] - Blood Pressure Screening Quality Measure: Screening for High Blood Pressure and Follow-Up Documented Blood Pressure Classification: Hypertensive Reading Systolic Measurement: 165 Diastolic Measurement: 101 First Hypertensive Follow-up Interventions: Follow-up with rescreen GT 1 day and LT 4 weeks., Referral to alternative/primary care provider. - Elder Abuse Suspicion Index EASI Reference Information: Yury CORDON, Feliciano C, Hugo D, Salima Alatorre.Development and validation of a tool to assist physicians identification of elder abuse: The Elder Abuse Suspicion Index (EASI ). Journal of Elder Abuse and Neglect, 2008; 20 (3): 276-300.
[2017-08-08] MEDS ORDERED: ENOXAPARIN 40 MG/0.4 ML SYR SQ SCH (10:00)
[2017-08-08] MEDS: PANTOPRAZOLE SODIUM IV 40 MG VIAL IVP SCH (11:36)
== END 2017-08-08 12:25 | disposition home or self-care (01) ==
LOC: ER 04:11 → MEDSURG 06:23
PROVIDERS: ADMIT Internal Medicine; ATTEND Internal Medicine
DX: K85.80 Other acute pancreatitis without necrosis or infection (principal); R11.2 Nausea with vomiting, unspecified; R19.7 Diarrhea, unspecified; K52.9 Noninfective gastroenteritis and colitis, unspecified; R03.0 Elevated blood-pressure reading, without diagnosis of hypertension
CPT/HCPCS: 99285 ×2; 96374; 96375; 96361; 83690 ×2; 85025 ×2; 80053 ×2; 81001; 74177; 93005; 93010; G0378 ×2; Q9967; J1980; J2405; J2270; 99217; 99220; C9113; J0780; J1200; J2765; J7030

== ENCOUNTER 2017-08-17 12:54 | Day surgery (SDC) | payer OTHER ==
[2017-08-17] MEDS ORDERED: PROPOFOL 10 MG/ML VIAL IV ONE (12:55)
[2017-08-17] MEDS ORDERED: LIDOCAINE 2% MDV (20MG/ML) 20ML VIAL IV ONE (12:55)
[2017-08-17] MEDS ORDERED: MIDAZOLAM HCL 2MG/2ML VIAL IV ONE (12:55)
--- NOTE | 2017-08-20 10:10 | Operative Note ---
DATE OF SURGERY: 08/17/2017 SURGEON: Boyd Armstrong MD OPERATION: COLONOSCOPY. INDICATIONS: This is a 56-year-old male with average risk for colorectal cancer who presented for screening colonoscopy. POSTOPERATIVE DIAGNOSES: 1. A 3 mm sessile polyp in the cecum that was removed by cold biopsy forceps. 2. Otherwise normal colon. ANESTHESIA: Sedation is per Anesthesia. Pulse oximetry was monitored throughout the procedure to maintain O2 saturation of 90% or greater. Supplemental oxygen was administered via nasal cannula. Cardiac and vital signs were monitored throughout the duration of the procedure, and they were stable. The procedure of colonoscopy and risks and alternatives of the procedure, including the risk of bleeding and perforation, among others, were explained to the patient who voiced understanding and agreed to have the procedure done. Physical examination was performed, and the patient was found stable for sedation. PROCEDURE: The patient was placed in the left lateral position. Sedation was initiated. A digital rectal exam was performed and showed some mild external hemorrhoids with no palpable rectal masses. An Olympus PCF-180AL colonoscope was then inserted into the rectum under direct visualization. It was advanced to the cecum without difficulty. The ileocecal valve and appendiceal orifice were identified and photographed. The colonic mucosa was carefully examined upon introduction of the colonoscope. There were no lesions noted. In the cecum was a 3 mm sessile polyp that was noted and was removed by cold biopsy forceps. The colonoscope was then withdrawn while carefully examining the colonic mucosal surfaces. No lesions were noted. In the rectum, retroflexion was performed and grade 1 internal hemorrhoids were noted. The colonoscope was then withdrawn and the procedure was terminated. The patient tolerated the procedure well without any immediate complications. He remained with stable vital signs and was transferred to the recovery room. RECOMMENDATIONS: 1. The patient should be on a high-fiber diet. 2. The patient is to have a repeat colonoscopy for surveillance in 5 or 10 years depending on the histology of the polyps. Thank you for allowing me to participate in the care of your patient. CC: Grzegorz BLANK
== END 2017-08-17 14:30 | disposition home or self-care (01) ==
LOC: HOP 12:54
PROVIDERS: ATTEND Internal Medicine Gastroenterology
DX: Z12.11 Encounter for screening for malignant neoplasm of colon (principal); D12.0 Benign neoplasm of cecum

== ENCOUNTER 2017-12-27 18:24 | Emergency (ER) | payer OTHER ==
[2017-12-27] MEDS ORDERED: 0.9 % SODIUM CHLORIDE 1,000 ML BAG IV ONE ×2 (19:39→21:26)
[2017-12-27] MEDS ORDERED: ONDANSETRON HCL IV 4 MG/2 ML VIAL IV ONE (19:39)
[2017-12-27] MEDS ORDERED: KETOROLAC 30 MG/ML VIAL IVP ONE (19:39)
--- NOTE | 2017-12-27 19:43 | Emergency Department Record ---
History of Present Illness - General Chief complaint: Vomiting Stated complaint: VOMITING Time Seen by Provider: 12/27/17 19:30 Mode of Arrival: Ambulatory Limitations: No limitations - History of Present Illness Initial comments: pt has had vomiting all day with stomach cramping he has not been able to even keep water down. it feels similar to when he had pancreatitis a few months ago. complaint: Abdominal pain, Nausea, Vomiting -: Hour(s) Description of Vomiting: Bilious Associated Abdominal Pain: Yes Location: Periumbilcal Severity scale (1-10): 8 Quality: Cramping Consistency: Constant Improves with: None Worsens with: None Associated Symptoms: Fever/chills - Related Data Previous Rx's Medication Instructions Recorded Omeprazole Magnesium [Prilosec Otc] 20 mg PO DAILY #30 tab. 08/08/17 Ondansetron [Zofran Odt] 4 mg PO Q8H PRN #10 tab.nirali 08/08/17 Allergies Allergy/AdvReac Type Severity Reaction Status Date / Time No Known Drug Allergies Allergy Verified 08/07/17 04:23 Travel Screening - Travel/Exposure Within Last 30 Days Have you traveled within the last 30 days?: No - Travel Symptoms Symptom Screening: None Past Medical History - SOCIAL HISTORY Smoking Status: Former smoker - RESPIRATORY Hx Respiratory Disorders: No - CARDIOVASCULAR Hx Cardio Disorders: No - NEURO Hx Neuro Disorders: No - GI Hx GI Disorders: Yes Hx Abdominal Pain: Yes (08/06/17, resolved now) Hx Pancreatitis: Yes (pancreas inflamed from the food posioning 08/06/17) Hx Rectal Bleeding: No Comment:: was in [facility] inpatient for food posioning 08/06-08/08/17 - Hx Genitourinary Disorders: No - ENDOCRINE Hx Endocrine Disorders: No - MUSCULOSKELETAL Hx Musculoskeletal Disorders: No - PSYCH Hx Psych Problems: No - HEMATOLOGY/ONCOLOGY Hx Hematology/Oncology Disorders: No Family Medical History Any Significant Family History?: Yes Hx Cancer: Father *Cancer Comment: lung Hx Resp Disorders: Father, Mother *Resp Comment: mother-copd, father lung cancer Course Vital Signs 12/27/17 19:15 Temperature 99.8 F H Pulse Rate 75 Respiratory 24 Rate Blood Pressure 178/93 Pulse Ox 97 - Reevaluation(s) Reevaluation #1: 12/28/17 00:03 pt feels better. wants to go home Medical Decision Making - Lab Data Result diagrams: 12/27/17 19:24 12/27/17 19:24 Disposition Disposition: Discharge Clinical Impression: Vomiting Qualifiers: Vomiting type: unspecified Vomiting Intractability: non-intractable Nausea presence: with nausea Qualified Code(s): R11.2 - Nausea with vomiting, unspecified Abdominal pain Qualifiers: Abdominal location: epigastric Qualified Code(s): R10.13 - Epigastric pain Disposition: Home, Self-Care Condition: (1) Good Instructions: Acute Nausea and Vomiting (ED), Abdominal Pain (ED) Additional Instructions: follow up with family doctor. return sooner if worse. clear liquids only tonight. recheck if abdominal pain continues. tylenol for fever Forms: Patient Portal Access Quality - Quality Measures Quality Measures: N/A - Blood Pressure Screening Does Patient Have Any of the Following: No Blood Pressure Classification: Hypertensive Reading Systolic Measurement: 178 Diastolic Measurement: 93 Screening for High Blood Pressure: < First Hypertensive BP, F/U Documented > [ G8950] First Hypertensive Follow-up Interventions: Follow-up with rescreen GT 1 day and LT 4 weeks.
[2017-12-27 19:51] LABS: HEMOGLOBIN 15.9 gm/dl (14.0-18.0); MEAN CELL VOLUME 87.4 fl (81-97); MEAN CORPUSCULAR HGB CONC 33.1 g/dl (32-36); MEAN PLATELET VOLUME 9.2 fl (7.4-10.4); PLATELET COUNT 382 K/uL (130-400); RED BLOOD COUNT 5.49 M/uL (4.40-5.70); RED CELL DISTRIBUTION WIDTH 13.4 % (11.5-14.5); WHITE BLOOD COUNT W/O DIFF 11.7 K/uL (4.2-12.2)
[2017-12-27 20:05] LABS: BLOOD UREA NITROGEN 15 mg/dL (6-20); EST GLOMERULAR FILTRATION RATE > 60 mL/min; TOTAL PROTEIN 7.8 g/dL (6.6-8.7)
[2017-12-27 20:07] LABS: GLUCOSE,RANDOM 155 mg/dL (74-109)
[2017-12-27 20:10] LABS: ALKALINE PHOSPHATASE 74 U/L (40-129); ALT/SGPT 14 U/L (<41); AST/SGOT 18 U/L (10.0-50.0); BILIRUBIN,DIRECT < 0.2 mg/dL (0-0.3); LIPASE 19 U/L (13-60)
[2017-12-27 20:20] LABS: PLATELET ESTIMATE NORMAL (NORMAL)
[2017-12-27 22:03] LABS: URINE APPEARANCE CLEAR; URINE BILIRUBIN NEGATIVE (NEGATIVE); URINE BLOOD MODERATE (NEGATIVE); URINE COLOR YELLOW; URINE GLUCOSE (UA) NEGATIVE (NEGATIVE); URINE KETONE TRACE (NEGATIVE); URINE LEUKOCYTE ESTERASE NEGATIVE (NEGATIVE); URINE NITRITE NEGATIVE (NEGATIVE); URINE PROTEIN NEGATIVE (NEGATIVE); URINE UROBILINOGEN 0.2 E.U./dL (0.20 - 1.00)
[2017-12-27 22:14] LABS: URINE EPITHELIAL CELLS 0 - 2 (FEW); URINE WBC 0 - 2 (0-2/hpf)
[2017-12-27 22:15] LABS: URINE MUCUS LIGHT
[2017-12-27] MEDS ORDERED: ACETAMINOPHEN 500 MG TABLET PO ONE (22:22)
[2017-12-27] MEDS ORDERED: DICYCLOMINE HCL 10 MG/ML AMPUL IM ONE (22:26)
[2017-12-27] MEDS ORDERED: ACETAMINOPHEN 1,000 MG/100 ML BTL IVPB ONE (22:38)
[2017-12-27] MEDS ORDERED: PROMETHAZINE HCL 12.5 MG in 0.9 % SODIUM CHLORIDE 100ML 100 ML IVPB ONE (22:39)
[2017-12-27] MEDS ORDERED: HYDROMORPHONE HCL 2 MG/ML VIAL IVP ONE (23:29)
--- NOTE | 2017-12-31 07:42 | CT SCAN REPORT ---
EXAM: CT SCAN OF THE ABDOMEN AND PELVIS WITHOUT CONTRAST HISTORY: EPIGASTRIC PAIN AND LEFT LOWER QUADRANT ABDOMINAL PAIN. NAUSEA AND VOMITING. TECHNIQUE: Standard CT imaging of the abdomen and pelvis was performed without contrast. Comparison: 08/07/17. FINDINGS: The lung bases are clear. The liver, gallbladder, biliary tree, pancreas, spleen, and adrenal glands are normal. The kidneys and ureters are unremarkable. Mild atherosclerotic calcifications are present within the aorta. There is no aneurysm. There is no retroperitoneal lymphadenopathy. The colon is decompressed. There are no focal inflammatory changes. The small bowel loops are normal in caliber. The appendix is unremarkable. There is no pneumoperitoneum or ascites. The urinary bladder appears normal. The prostate gland is mildly enlarged. Fat containing right inguinal and umbilical hernias are unchanged. There are no acute osseous abnormalities. IMPRESSION: 1. NO ACUTE INTRAABDOMINAL PATHOLOGY. 2. STABLE FAT CONTAINING UMBILICAL AND RIGHT INGUINAL HERNIAS. JOB NUMBER: [id number] MTDD
== END 2017-12-28 00:13 | disposition home or self-care (01) ==
LOC: ER 18:24
DX: R11.2 Nausea with vomiting, unspecified (principal); R10.33 Periumbilical pain
CPT/HCPCS: 99284 ×2; 96372; 96365; 96375; 96361; 83690; 80076; 80048; 81001; 85027; 74176; J1885; J2405; J1170; J2550; J7030

== ENCOUNTER 2017-12-29 09:47 | Observation (INO) | payer OTHER ==
[2017-12-29] MEDS ORDERED: ONDANSETRON HCL IV 4 MG/2 ML VIAL IV ONE (10:08)
[2017-12-29] MEDS ORDERED: 0.9 % SODIUM CHLORIDE 1,000 ML BAG IV ONE ×2 (10:08→10:44)
--- NOTE | 2017-12-29 10:11 | Emergency Department Record ---
History of Present Illness - General Chief Complaint: Abdominal Pain Stated Complaint: STOMACH CRAMPS/VOMITING Time Seen by Provider: 12/29/17 09:53 Source: Patient Mode of Arrival: Ambulatory Limitations: No limitations - History of Present Illness Initial Comments: The patient is here due to abdominal cramping with nausea and vomiting for the last 6 hours. He denies any CP, SOB, RL, or sweating. The patient was here in the ER 2 days ago for the same thing and had a neg workup including an abdominal CT. He denies any alcohol intake or any fevers. The patient states he has had similar issues with Pancreatitis in the past. MD Complaint: Abdominal pain Onset/Timin -: Hour(s) Severity scale (1-10): 9 Quality: Aching Consistency: Constant, Intermittent - Related Data Previous Rx's Medication Instructions Recorded Omeprazole Magnesium [Prilosec Otc] 20 mg PO DAILY #30 tab. 08/08/17 Ondansetron [Zofran Odt] 4 mg PO Q8H PRN #10 tab.nirali 08/08/17 Allergies Allergy/AdvReac Type Severity Reaction Status Date / Time No Known Drug Allergies Allergy Verified 12/29/17 10:02 Travel Screening - Travel/Exposure Within Last 30 Days Have you traveled within the last 30 days?: No - Travel/Exposure Within Last Year Have you traveled outside the [place] in the last year?: No - Additonal Travel Details Have you been exposed to anyone with a communicable illness?: No - Travel Symptoms Symptom Screening: None Review of Systems Constitutional: Denies: Chills, Fever Eyes: Denies: Eye discharge ENT: Denies: Congestion Respiratory: Denies: Cough, Dyspnea Cardiovascular: Denies: Arrhythmia, Chest pain Endocrine: Denies: Fatigue Gastrointestinal: Reports: Abdominal pain, Nausea, Vomiting. Denies: Diarrhea Genitourinary: Denies: Dysuria Musculoskeletal: Denies: Arthralgia Past Medical History - SOCIAL HISTORY Smoking Status: Former smoker Alcohol Use: None Drug Use: None - RESPIRATORY Hx Respiratory Disorders: No - CARDIOVASCULAR Hx Cardio Disorders: No - NEURO Hx Neuro Disorders: No - GI Hx GI Disorders: Yes Hx Abdominal Pain: Yes (08/06/17, resolved now) Hx Pancreatitis: Yes (pancreas inflamed from the food posioning 08/06/17) Hx Rectal Bleeding: No Comment:: was in [facility] inpatient for food posioning 08/06-08/08/17 - Hx Genitourinary Disorders: No - ENDOCRINE Hx Endocrine Disorders: No - MUSCULOSKELETAL Hx Musculoskeletal Disorders: No - PSYCH Hx Psych Problems: No - HEMATOLOGY/ONCOLOGY Hx Hematology/Oncology Disorders: No Family Medical History Any Significant Family History?: Yes Hx Cancer: Father *Cancer Comment: lung Hx Resp Disorders: Father, Mother *Resp Comment: mother-copd, father lung cancer Physical Exam - General General Appearance: Alert, Oriented x3, Cooperative, No acute distress - Head Head exam: Atraumatic, Normocephalic, Normal inspection - Eye Eye exam: Normal appearance, PERRL, EOMI - Neck Neck exam: Normal inspection, Full ROM. negative: Tenderness - Respiratory Respiratory exam: Normal lung sounds bilaterally. negative: Respiratory distress - Cardiovascular Cardiovascular Exam: Regular rate, Normal rhythm, Normal heart sounds - GI/Abdominal GI/Abdominal exam: Soft, Tenderness (in the upper abdomen diffusely.). negative : Rebound, Rigid - Extremities Extremities exam: Normal inspection, Full ROM, Normal capillary refill. negative: Tenderness Course Vital Signs 12/29/17 09:58 Temperature 98.1 F Pulse Rate 71 Respiratory 20 Rate Blood Pressure 191/116 Pulse Ox 99 - Reevaluation(s) Reevaluation #1: The patient is doing better at this time. He is still having pain but it is much better. I did discuss the issues with him and due to the fact he has a low grade fever we will order a repeat CT with Contrast. 12/29/17 12:44 Reevaluation #2: The patient is doing better but is still having intermittent significant pain in the LUQ. He has had mild nausea but no vomiting or diarrhea here. The labs and CT do not point to any specific cause for the pain. Due to this visit being the patient's 2nd visit in 3 days I do feel the prudent course of action is to have the patient admitted to the hospital for Observation and monitoring. The patient does agree to that plan. I then did discuss the case with Dr. Hill who does agree to the plan. 12/29/17 15:06 Medical Decision Making - Data Complexity MDM Data: Labs Ordered and/or Reviewed, X-Ray Ordered and/or Reviewed, EKG Ordered and/or Reviewed - Lab Data Result diagrams: 12/29/17 10:10 12/29/17 10:10 - EKG Data -: EKG Interpreted by Me EKG: No Acute Changes, Normal EKG - Radiology Data Radiology results: Report reviewed (CT: Neg for any acute process.) Disposition Disposition: Admit Clinical Impression: Intractable abdominal pain Nausea & vomiting Qualifiers: Vomiting type: unspecified Vomiting Intractability: intractable Qualified Code( s): R11.2 - Nausea with vomiting, unspecified Disposition: Still a Patient at [facility] Decision to Admit: Admit from ER Decision to Admit Date: 12/29/17 Decision to Admit Time: 15:08 Accepting Physician: Liz Time Discussed w/Accepting Physician: 15:09 Condition: (2) Stable Time of Disposition: 15:09 Quality - Quality Measures Quality Measures: N/A - Blood Pressure Screening View Details: Yes Does Patient Have Any of the Following: No Blood Pressure Classification: Hypertensive Reading Systolic Measurement: 191 Diastolic Measurement: 116 Screening for High Blood Pressure: < First Hypertensive BP, F/U Documented > [ G8950] First Hypertensive Follow-up Interventions: Referral to alternative/primary care provider.
[2017-12-29 10:20] LABS: BASO % 0.2 % (0-6); EOS % 0.1 % (0-6); HEMOGLOBIN 15.7 gm/dl (14.0-18.0); LYMPH % 5.8 % (16-45); MEAN CELL VOLUME 85.9 fl (81-97); MEAN CORPUSCULAR HEMOGLOBIN 28.7 pg (27-33); MEAN CORPUSCULAR HGB CONC 33.4 g/dl (32-36); MEAN PLATELET VOLUME 8.9 fl (7.4-10.4); MONO % 2.7 % (0-9); PLATELET COUNT 363 K/uL (130-400); RED BLOOD COUNT 5.47 M/uL (4.40-5.70); RED CELL DISTRIBUTION WIDTH 13.1 % (11.5-14.5)
[2017-12-29 10:33] LABS: BLOOD UREA NITROGEN 21 mg/dL (6-20); EST GLOMERULAR FILTRATION RATE > 60 mL/min
[2017-12-29 10:34] LABS: TOTAL PROTEIN 6.9 g/dL (6.6-8.7)
[2017-12-29 10:36] LABS: GLUCOSE,RANDOM 135 mg/dL (74-109)
[2017-12-29 10:38] LABS: ALBUMIN 4.5 g/dL (4.0-5.0); ALKALINE PHOSPHATASE 65 U/L (40-129); ALT/SGPT 12 U/L (<41); AST/SGOT 15 U/L (10.0-50.0); LIPASE 27 U/L (13-60)
[2017-12-29 10:39] LABS: BILIRUBIN,DIRECT < 0.2 mg/dL (0-0.3)
[2017-12-29] MEDS ORDERED: MAGNESIUM HYDROXIDE/AL HYDROX 30 ML, LIDOCAINE VISC 2% 15ML 15 ML PO ONE ×2 (10:44)
[2017-12-29] MEDS ORDERED: PANTOPRAZOLE SODIUM IV 40 MG VIAL IVP ONE (10:44)
[2017-12-29] MEDS ORDERED: PROMETHAZINE HCL 12.5 MG in 0.9 % SODIUM CHLORIDE 100ML 100 ML IVPB ONE (10:50)
[2017-12-29] MEDS ORDERED: HYDROMORPHONE HCL 2 MG/ML VIAL IVP ONE (11:35)
[2017-12-29] MEDS ORDERED: ACETAMINOPHEN 325 MG TAB PO ONE (11:35)
[2017-12-29] MEDS ORDERED: ONDANSETRON HCL IV 4 MG/2 ML VIAL IVP PRN (15:48)
[2017-12-29] MEDS ORDERED: 0.9 % SODIUM CHLORIDE 1000ML 1,000 ML IV PRN (15:48)
[2017-12-29] MEDS ORDERED: HYDROMORPHONE HCL 2 MG/ML VIAL IV PRN (15:48)
[2017-12-29] MEDS: PANTOPRAZOLE SODIUM IV 40 MG VIAL IV SCH (22:18)
[2017-12-29] MEDS ORDERED: ACETAMINOPHEN 500 MG TABLET PO PRN ×2 (22:25→22:28)
[2017-12-30 07:07] LABS: BASO % 0.3 % (0-6); GRAN % 64.6 % (47-80); HEMATOCRIT 47.4 % (42.0-52.0); HEMOGLOBIN 16.1 gm/dl (14.0-18.0); LYMPH % 24.8 % (16-45); MEAN CORPUSCULAR HEMOGLOBIN 29.5 pg (27-33); MEAN PLATELET VOLUME 9.2 fl (7.4-10.4); MONO % 9.3 % (0-9); PLATELET COUNT 342 K/uL (130-400); RED BLOOD COUNT 5.45 M/uL (4.40-5.70); RED CELL DISTRIBUTION WIDTH 13.3 % (11.5-14.5); WHITE BLOOD COUNT W/O DIFF 7.1 K/uL (4.2-12.2)
[2017-12-30 07:19] LABS: ALKALINE PHOSPHATASE 64 U/L (40-129); ALT/SGPT 11 U/L (<41); AMYLASE 47 U/L (28-100); AST/SGOT 15 U/L (10.0-50.0); BLOOD UREA NITROGEN 10 mg/dL (6-20)
[2017-12-30 07:20] LABS: ALB/GLOB RATIO 1.7 (1.1-1.8); CREATININE 0.9 mg/dL (0.7-1.2); EST GLOMERULAR FILTRATION RATE > 60 mL/min; GLUCOSE,RANDOM 104 mg/dL (74-109); LIPASE 34 U/L (13-60); TOTAL PROTEIN 6.4 g/dL (6.6-8.7)
[2017-12-30] MEDS: PANTOPRAZOLE SODIUM IV 40 MG VIAL IV SCH (09:14)
[2017-12-30] MEDS ORDERED: HYOSCYAMINE SULFATE ODT 0.125 MG TAB.SUBL SL ONE (13:54)
[2017-12-30] MEDS ORDERED: ACETAMINOPHEN 500 MG TABLET PO PRN (13:54)
[2017-12-30] MEDS ORDERED: HYOSCYAMINE SULFATE ODT 0.125 MG TAB.SUBL SL PRN (13:54)
--- NOTE | 2017-12-30 14:14 | History & Physical ---
History of Present Illness - Date of Service Date of Service for History & Physical: 12/30/17 - History of Present Illness Admitting Diagnosis: 1. Intractable Abdominal pain with vomiting. History of Present Illness: PMHx: THC use, pancreatitis. 12/29/17 Pt presented to the ED with terrible abdominal pain right under the L rib and epigastric area. He described the pain as a severe cramping which leads to episodes of NBNB vomiting. He states he vomited 3 times yesterday. The pain is usually then intractable at home and he is forced to go to the ED. This is his third episode in the last 4 months. The first episode, it was determined that he had pancreatitis, but that was not seen on abd CT per radiology although he says that it feels similar to that episode. He states that he hasn't had many health problems in the past other than this. He denies any recent alcohol intake. Denies that this is associated with eating any specific foods. Denies Reflux. He does complain of bilious loose stool since the episode started yesterday, but is unsure if this happened in prior episodes or not. ED course: Pt was given reglan, zofran, protonix, dilaudid CBC: mildly elevated WBC's. CMP wnl. Normal lipase and amylase. Abd CT with contrast: did not show any acute abnormalities. EKG: NSR BP elevated at 191/116 Pt was admitted for sx control and further evaluation by GI. 12/30/17 Pt states that he does not take any medications at home other than THC, but has protonix and zofran on his home med list. He denies any pain this morning but does complain of very mild cramping in the epigastric + RUQ area and bilious loose stool without blood today. Denies any nausea or vomiting today. Only been able to tolerate clear liquid diet but open to trying to advance diet as tolerated. BP normotensive today. Denies any past diagnosis of HTN. WBC's normalized today. Travel Screening - Travel/Exposure Within Last 30 Days Have you traveled within the last 30 days?: No - Travel/Exposure Within Last Year Have you traveled outside the [place] in the last year?: No - Additonal Travel Details Have you been exposed to anyone with a communicable illness?: No - Travel Symptoms Symptom Screening: None Review of Systems Constitutional: Denies: Chills, Fever Eyes: Denies: Eye discharge ENT: Denies: Congestion Respiratory: Denies: Cough, Dyspnea, Wheezes Cardiovascular: Denies: Arrhythmia, Chest pain, Murmurs, Palpitations Endocrine: Denies: Fatigue Gastrointestinal: Reports: As per HPI, Diarrhea. Denies: Abdominal pain, Nausea , Vomiting Genitourinary: Denies: Dysuria, Frequency Musculoskeletal: Denies: Arthralgia Skin: Denies: Bruising, Rash Neurological: Denies: Abnormal gait, Weakness Psychiatric: Denies: Anxiety, Depression Past Medical History - SOCIAL HISTORY Smoking Status: Former smoker Alcohol Use: None Drug Use: None - RESPIRATORY Hx Respiratory Disorders: No - CARDIOVASCULAR Hx Cardio Disorders: No - NEURO Hx Neuro Disorders: No - GI Hx GI Disorders: Yes Hx Abdominal Pain: Yes (08/06/17, resolved now) Hx Pancreatitis: Yes (pancreas inflamed from the food posioning 08/06/17) Hx Rectal Bleeding: No Comment:: was in [facility] inpatient for food posioning 08/06-08/08/17 - Hx Genitourinary Disorders: No - ENDOCRINE Hx Endocrine Disorders: No - MUSCULOSKELETAL Hx Musculoskeletal Disorders: No - PSYCH Hx Psych Problems: No - HEMATOLOGY/ONCOLOGY Hx Hematology/Oncology Disorders: No Family Medical History Any Significant Family History?: Yes Hx Cancer: Father *Cancer Comment: lung Hx Resp Disorders: Father, Mother *Resp Comment: mother-copd, father lung cancer H&P Meds/Allergies - Allergies Allergies: Allergies Allergy/AdvReac Type Severity Reaction Status Date / Time No Known Drug Allergies Allergy Verified 12/29/17 10:02 - Home Medications Previous Rx's Medication Instructions Recorded Omeprazole Magnesium [Prilosec Otc] 20 mg PO DAILY #30 tab. 08/08/17 Ondansetron [Zofran Odt] 4 mg PO Q8H PRN #10 tab.nirali 08/08/17 - Active Medications Active Medications: Current Medications Acetaminophen (Tylenol 500mg Tab) 1,000 mg PO Q6H PRN PRN Reason: PAIN - MILD (1-4) Hyoscyamine (Levsin Odt) 0.125 mg SL Q4H PRN PRN Reason: ABDOMINAL PAIN Sodium Chloride () 1,000 mls @ 125 mls/hr IV .Q8H PRN PRN Reason: LARGE VOLUME IV Last Admin: 12/30/17 09:14 Dose: 125 mls/hr Ondansetron HCl (Zofran) 4 mg IVP Q4H PRN PRN Reason: NAUSEA Pantoprazole Sodium (Protonix) 40 mg PO BIDAC [facility] Physical Exam - Vital Signs Vital Signs: Vital Signs - Last 24 Hrs Temp Pulse Pulse Resp BP BP Pulse Ox 12/30/17 13:00 99.6 F 75 18 136/89 96 12/30/17 08:09 99.6 F 75 18 164/100 99 12/30/17 07:51 16 12/30/17 05:00 98.8 F 70 20 151/99 95 12/29/17 21:48 99.4 F 64 18 138/83 98 12/29/17 17:48 99.3 F 68 18 147/95 98 12/29/17 15:45 99.0 F 76 20 146/105 96 12/29/17 15:25 98.4 F 71 18 118/88 96 - General General Appearance: Alert, Oriented x3, Cooperative, No acute distress Limitations: No limitations - Head Head exam: Atraumatic, Normocephalic, Normal inspection Head exam detail: negative: CSF otorrhea, CSF rhinorrhea - Eye Eye exam: Normal appearance, EOMI - ENT ENT exam: Mucous membranes moist Nasal Exam: Normal inspection Mouth exam: Normal external inspection - Neck Neck exam: Normal inspection, Full ROM. negative: Tenderness - Respiratory Respiratory exam: Normal lung sounds bilaterally (some transfer of bowel sounds heard in the L side of the chest). negative: Respiratory distress - Cardiovascular Cardiovascular Exam: Regular rate, Normal rhythm, Normal heart sounds - GI/Abdominal GI/Abdominal exam: Soft, Hyperactive bowel sounds (throughout), Tenderness ( very mild in the LUQ and epigastric areas on palpation. ). negative: Distended , Rebound, Rigid - Rectal Rectal exam: Deferred - exam: Deferred - Extremities Extremities exam: Normal inspection, Full ROM, Normal capillary refill. negative: Tenderness - Back Back exam: Reports: Normal inspection - Neurological Neurological exam: Alert, Oriented X3 - Psychiatric Psychiatric exam: negative: Anxious, Depressed - Skin Type of lesion: negative: Rash Results - Labs Result Diagrams: 12/30/17 06:18 12/30/17 06:18 Labs Last 24 Hours: Laboratory Results - last 24 hr 12/30/17 12/30/17 06:18 06:18 WBC 7.1 RBC 5.45 Hgb 16.1 Hct 47.4 MCV 87.0 MCH 29.5 MCHC 34.0 RDW 13.3 Plt Count 342 MPV 9.2 Gran % 64.6 Lymphocytes % 24.8 Monocytes % 9.3 H Eosinophils % 1.0 Basophils % 0.3 Sodium 141 Potassium 3.7 Chloride 104 Carbon Dioxide 26.0 Anion Gap 11.0 BUN 10 Creatinine 0.9 Estimated GFR > 60 Random Glucose 104 Calcium 8.9 Total Bilirubin 0.70 AST 15 ALT 11 Alkaline Phosphatase 64 Total Protein 6.4 L Albumin 4.0 Globulin 2.4 Albumin/Globulin Ratio 1.7 Amylase 47 Lipase 34 VTE H&P Assessment - Risk for VTE Risk for VTE: Yes Risk Level: Low (SCD's while in bed) Risk Assessment Date: 12/30/17 Risk Assessment Time: 14:26 VTE Orders Placed or Will Be Placed: Yes Plan - Detailed Diagnosis and Plan (1) Abdominal pain Current Visit: No Status: Acute Qualifiers: Abdominal location: epigastric Qualified Code(s): R10.13 - Epigastric pain Base Code: R10.9 - UNSPECIFIED ABDOMINAL PAIN Priority: High Comment: - Unclear cause at this time. - Likely 2/2 to gastritis/ PUD. - Continue protonix BID. - Zofran PRN nausea/ vomiting. - Hyoscyamine PRN abd cramping. - Advance diet as tolerated. - C/s to GI in place. - Tylenol PRN pain. - Continue IVF - WBC's trended to normal today. Likely elevated 2/2 to vomiting. (2) DVT prophylaxis Current Visit: No Status: Acute Base Code: [id number] - Comment: - Pt low risk given that he is mobile. - SCD's while in bed. - Disposition Home pending GI consult and tolerating normal diet.
[2017-12-30] MEDS: PANTOPRAZOLE SODIUM 40 MG TABLET PO SCH (15:34)
[2017-12-31] MEDS: PANTOPRAZOLE SODIUM 40 MG TABLET PO SCH (06:04)
[2017-12-31 06:48] LABS: BASO % 0.4 % (0-6); EOS % 1.7 % (0-6); GRAN % 65.8 % (47-80); HEMATOCRIT 48.5 % (42.0-52.0); HEMOGLOBIN 16.1 gm/dl (14.0-18.0); LYMPH % 23.1 % (16-45); MEAN CELL VOLUME 86.9 fl (81-97); MEAN CORPUSCULAR HEMOGLOBIN 28.9 pg (27-33); MEAN CORPUSCULAR HGB CONC 33.2 g/dl (32-36); MEAN PLATELET VOLUME 9.1 fl (7.4-10.4); PLATELET COUNT 377 K/uL (130-400); RED BLOOD COUNT 5.58 M/uL (4.40-5.70); RED CELL DISTRIBUTION WIDTH 13.3 % (11.5-14.5); WHITE BLOOD COUNT W/O DIFF 8.1 K/uL (4.2-12.2)
[2017-12-31 07:05] LABS: BLOOD UREA NITROGEN 11 mg/dL (6-20); EST GLOMERULAR FILTRATION RATE > 60 mL/min; GLUCOSE,RANDOM 105 mg/dL (74-109)
--- NOTE | 2017-12-31 07:45 | CT SCAN REPORT ---
EXAM: CT OF THE ABDOMEN AND PELVIS WITH CONTRAST HISTORY: ABDOMINAL PAIN. TECHNIQUE: Sequential axial images were obtained from the diaphragms through the ischiorectal fossa after intravenous and oral administration of 100 ml of Omnipaque 300 contrast material. FINDINGS: The visualized lung bases appear normal. The liver appears homogeneous. The gallbladder, pancreas and spleen appear normal. The adrenal glands and kidneys appear normal. The small bowel appears normal. The appendix is visualized and appears normal. The colon appears normal. The urinary bladder appears normal. There is a fat containing left inguinal hernia. The osseous structures are normal. IMPRESSION: 1. NO ACUTE ABDOMINAL OR PELVIC DISEASE PROCESS. 2. FAT CONTAINING RIGHT INGUINAL HERNIA. JOB NUMBER: [id number] [facility]
--- NOTE | 2017-12-31 13:49 | Discharge Summary ---
Providers Discharge Summary Date: 12/31/17 Date of admission: 12/29/17 15:35 Expected Date of Discharge: 12/31/17 Attending physician: JORDAN MCINTYRE Primary care physician: MAYA MYERS D.O. Consults: Consult Orders 12/30/17 11:01 Consult NOW Consulting Provider: SAMMY PANG Physician Instructions: Consult for Dr. Pabon GI for tomorrow. Reason For Exam: Abd pain, vomiting Physical Exam - Vital Signs Vital Signs: Vital Signs - Last 24 Hrs Temp Pulse Resp BP Pulse Ox 12/31/17 13:43 83 16 151/99 100 12/31/17 09:00 99.2 F 74 16 134/100 97 12/31/17 05:00 98.5 F 73 18 131/99 98 12/30/17 21:00 99.8 F H 76 16 141/92 96 12/30/17 17:00 99.6 F 80 18 151/90 99 - General General Appearance: Alert, Oriented x3, Cooperative, No acute distress Limitations: No limitations - Head Head exam: Atraumatic, Normocephalic, Normal inspection Head exam detail: negative: CSF otorrhea, CSF rhinorrhea - Eye Eye exam: Normal appearance, EOMI - ENT ENT exam: Mucous membranes moist Nasal Exam: Normal inspection Mouth exam: Normal external inspection - Neck Neck exam: Normal inspection, Full ROM. negative: Tenderness - Respiratory Respiratory exam: Normal lung sounds bilaterally. negative: Respiratory distress - Cardiovascular Cardiovascular Exam: Regular rate, Normal rhythm, Normal heart sounds - GI/Abdominal GI/Abdominal exam: Soft, Hyperactive bowel sounds (throughout). negative: Distended, Rebound, Rigid, Tenderness - Rectal Rectal exam: Deferred - exam: Deferred - Extremities Extremities exam: Normal inspection, Full ROM, Normal capillary refill. negative: Pedal edema, Tenderness - Neurological Neurological exam: Alert, Oriented X3 - Psychiatric Psychiatric exam: negative: Anxious, Depressed - Skin Type of lesion: negative: Rash Hospitalization - Hospitalization Admission Diagnosis: 1. Intractable Abdominal pain with vomiting. - Problem List/Discharge Diagnosis (1) Abdominal pain Current Visit: No Status: Acute Discharge Diagnosis: Abdominal location: epigastric Qualified Code(s): R10.13 - Epigastric pain Base Code: R10.9 - UNSPECIFIED ABDOMINAL PAIN Comment: - esophagitis present on EGD per GI - Protonix Daily 40mg - hyoscyamine for abd cramping PRN - zofran PRN nausea. (2) DVT prophylaxis Current Visit: No Status: Acute Base Code: [id number] - Comment: - Pt low risk given that he is mobile. - SCD's while in bed. - Disposition Home - Hospitalization Course Disposition: Home, Self-Care Hospital Course: PMHx: THC use, pancreatitis. ED course: Pt presented to the ED with terrible abdominal pain right under the L rib and epigastric area. He described the pain as a severe cramping which leads to episodes of NBNB vomiting. He states he vomited 3 times yesterday. The pain is usually then intractable at home and he is forced to go to the ED. This is his third episode in the last 4 months. The first episode, it was determined that he had pancreatitis, but that was not seen on abd CT per radiology although he says that it feels similar to that episode. He states that he hasn't had many health problems in the past other than this. He denies any recent alcohol intake. Denies that this is associated with eating any specific foods. Denies Reflux. He does complain of bilious loose stool since the episode started yesterday, but is unsure if this happened in prior episodes or not. ED course: Pt was given reglan, zofran, protonix, dilaudid CBC: mildly elevated WBC's. CMP wnl. Normal lipase and amylase. Abd CT with contrast: did not show any acute abnormalities. EKG: NSR BP elevated at 191/116 Pt was admitted for sx control and further evaluation by GI. Hospital course: Pt's pain resolved with dilaudid in ED and protonix BID. GI did endoscopy and noted esophagitis. BP was elevated during entire stay and pt was started on HCTZ 12.5 mg daily. Pt was able to tolerate regular diet upon d/c. Prescribed protonix, hyoscyamine, zofran, HCTZ. F/u with PCP as suggested in instructions. Procedures: Imaging and X-Rays 12/29/17 12:43 ABDOMEN/PELVIS W CONTRAST [CT] Stat Cardiology Procedures 12/29/17 14:41 EKG NOW Abnormal Labs: Abnormal Lab Results 12/29/17 12/29/17 12/30/17 Range/Units 10:10 10:10 06:18 WBC 13.0 H (4.2-12.2) K/uL Neutrophils % 85.0 H (47-80) % Lymphocytes % 5.8 L (16-45) % Monocytes % 9.3 H (0-9) % Lymphocytes 6.0 L (16-45) % Sodium (136-145) mmol/L Carbon Dioxide (22-29) mmol/L Anion Gap 17.0 H (7-16) BUN 21 H (6-20) mg/dL Random Glucose 135 H (74-109) mg/dL Total Protein (6.6-8.7) g/dL 12/30/17 12/31/17 Range/Units 06:18 06:15 WBC (4.2-12.2) K/uL Neutrophils % (47-80) % Lymphocytes % (16-45) % Monocytes % (0-9) % Lymphocytes (16-45) % Sodium 148 H (136-145) mmol/L Carbon Dioxide 30.0 H (22-29) mmol/L Anion Gap (7-16) BUN (6-20) mg/dL Random Glucose (74-109) mg/dL Total Protein 6.4 L (6.6-8.7) g/dL Condition at Discharge: (1) Good VTE Discharge VTE Reason For No Overlap Therapy: Not Indicated Discharge Medications - Discharge Medications Prescriptions: Hydrochlorothiazide [Hctz] 12.5 mg PO DAILY #60 tablet Hyoscyamine Sulfate [Levsin Odt] 0.125 mg SL Q4H PRN #30 tab.subl PRN Reason: Abdominal cramping Pantoprazole Sodium [Protonix] 40 mg PO DAILY #60 tablet. Home Medications: Ambulatory Orders Ondansetron [Zofran Odt] 4 mg PO Q8H PRN #10 tab.rapdis 08/08/17 [Last Taken 10/08] Hydrochlorothiazide [Hctz] 12.5 mg PO DAILY #60 tablet 12/31/17 [Last Taken Unknown] Hyoscyamine Sulfate [Levsin Odt] 0.125 mg SL Q4H PRN #30 tab.subl 12/31/17 [ Last Taken Unknown] Pantoprazole Sodium [Protonix] 40 mg PO DAILY #60 tablet. 12/31/17 [Last Taken Unknown] Discharge Plan - Discharge Instructions Activity at Discharge: Increase Activity as Tolerated Diet at Discharge: Other (avoid chocolate, alcohol, spicy food, smoking, caffiene) Additional Instructions: Follow up with PCP or new physician within the next 2-7 days to check on blood pressure. Quality Measures - Quality Measures Quality Measures: Documentation of Current Medications in Medical Record, Screening for High Blood Pressure and F/U Documented - Current Medications Quality Measure: Measure #130: Documentation of Current Medications Documentation of Current Medications: <Current Medications Documented/Reviewed> [G8427] - Blood Pressure Screening Quality Measure: Screening for High Blood Pressure and Follow-Up Documented Does Patient Have Any of the Following: No Blood Pressure Classification: Pre-Hypertensive BP Reading Systolic Measurement: 118 Diastolic Measurement: 88 Screening for High Blood Pressure: < Pre-Hypertensive BP, F/U Documented > [ G8950] Pre-Hypertensive Follow-up Interventions: Referral to alternative/primary care provider. Second Hypertensive Follow-up Interventions: Lifestyle Modifications., Anti- hypertensive pharmacologic therapy. Lifestyle Modification: Weight Reduction - Elder Abuse Suspicion Index EASI Reference Information: Yury CORDON, Feliciano C, Hugo D, Salima Alatorre.Development and validation of a tool to assist physicians identification of elder abuse: The Elder Abuse Suspicion Index (EASI ). Journal of Elder Abuse and Neglect, 2008; 20 (3): 276-300.
[2017-12-31] MEDS ORDERED: HYDROCHLOROTHIAZIDE 12.5 MG CAPSULE PO SCH (14:15)
[2017-12-31] MEDS ORDERED: PROPOFOL 10 MG/ML VIAL IV ONE (15:26)
[2017-12-31] MEDS ORDERED: LIDOCAINE 2% MDV (20MG/ML) 20ML VIAL IV ONE (15:26)
--- NOTE | 2018-01-02 17:20 | Medical Records Consult ---
DATE OF CONSULTATION: 12/31/2017 REASON FOR CONSULTATION: Severe upper epigastric and left upper quadrant pain associated with vomiting. HISTORY OF PRESENT ILLNESS: The patient is a pleasant 57-year-old gentleman seen in consultation at the hospital at this time for evaluation of severe epigastric to left upper quadrant pain just below the left rib cage. He states that he would have episodes of vomiting forcefully which results in a severe pain which did not resolve until he received narcotic analgesics. He states that this is the third time this happened over the past 4 months. Initially in July during his first attack, he was thought to have had pancreatitis although at this time laboratory did not confirm this. His pain at this time is better. He has been able to eat without vomiting. He did have a CT scan completed during his emergency room visit which was essentially unremarkable. He does admit to regular marijuana usage. He denies smoking. He denies indigestion or pyrosis. PAST MEDICAL HISTORY: Otherwise fairly unremarkable. SOCIAL HISTORY: He is a previous smoker but only smokes marijuana at this time. He denies significant alcohol consumption. Denies illicit drug usage. ALLERGIES: He denies allergies to medications. HOME MEDICATIONS: None on a regular basis. FAMILY HISTORY: Significant for lung cancer in his father and COPD in his mother. REVIEW OF SYSTEMS: Noted in the medical record and reviewed. From a GI standpoint, denies any melena, hematochezia. He did have a colonoscopy demonstrating polyps on 2 occasions. His last examination was in July of this year. PHYSICAL EXAMINATION: VITAL SIGNS: Stable. NECK: Supple. HEART: Regular. LUNGS: Clear. ABDOMEN: Soft. There is no rebound, rigidity, or guarding. EXTREMITIES: Free from edema. NEUROMUSCULAR: Examination is grossly unremarkable. DIAGNOSTIC DATA: Laboratory yesterday morning revealed a white blood cell count of 7.1, hemoglobin 16.1, hematocrit 47.4, platelet count 342,000. Comprehensive metabolic panel was unremarkable. Serum amylase and lipase were normal as well. As mentioned, CT scan of the abdomen was unremarkable. IMPRESSION: The patient suffers with severe epigastric and left upper quadrant pain just below the rib cage following vomiting, the latter which he attributes to his marijuana usage. This seems to be musculoskeletal in origin; however, in light of this persistent and recurrent pain, I will proceed with upper endoscopy to rule out acid peptic disease. The patient was agreeable to pursue this exam as well. Further recommendations will be forthcoming. Thank you for allowing me to participate in the care of this patient. I will update you with my findings. CC: MD ELVIE Hodge
--- NOTE | 2018-01-02 17:40 | Operative Note ---
DATE OF SURGERY: 12/31/2017 OPERATION: ESOPHAGOGASTRODUODENOSCOPY with multiple biopsies. INDICATION: Epigastric and left upper quadrant pain which followed a vomiting episode on 3 previous occasions. The pain is quite severe requiring hospitalization. Upper endoscopy is completed at this time to rule out acid peptic disease as a cause for his pain. It most likely is related to musculoskeletal problems, as it occurs after severe vomiting. The patient claims it feels like "a runner's stitch." ANESTHESIA: Intravenous sedation was administered by the department of anesthesiology and included Diprivan titrated to effect. PROCEDURE: Following informed consent from this alert individual, including a discussion of the risks and benefits of the procedure and an opportunity for the patient to ask questions, the patient was in the left lateral decubitus position. The Olympus [id number] video endoscope was inserted into the esophagus without resistance. The proximal esophagus had a normal appearance with normal folds and distensibility. The distal esophagus had demonstrated a somewhat irregular Z line with some edema and erythema but no ulcerations or erosions were noted. Biopsies were taken. The stomach was entered and found to be unremarkable. The pylorus was patent. Duodenal bulb, sweep, and descending duodenum were examined in a serial fashion and found to be normal as well. The instrument was then withdrawn back into the stomach where retroflexion accomplished following air insufflation failed to demonstrate any proximal gastric changes. The endoscope was then straightened and withdrawn after biopsies obtained. The patient tolerated the procedure well and was returned to the recovery area in stable condition. IMPRESSION: Slightly irregular Z line with some edema and erythema noted at the squamocolumnar junction. Multiple biopsies taken. The remainder of the examination was unremarkable. RECOMMENDATION: It is unlikely that the above findings are the cause for the patient's severe pain. Again, I suspect it might be musculoskeletal in origin after severe vomiting and retching. It would be of benefit to continue on a proton pump inhibitor at this time for his mild distal esophagitis. Further recommendations may be forthcoming pending results of pathology. As always, thank you for allowing me to participate in the care of your patient. ELVIE
--- NOTE | 2018-01-03 07:08 | Emergency Department Record ---
History of Present Illness - General Chief Complaint: Abdominal Pain Stated Complaint: STOMACH CRAMPS/VOMITING Time Seen by Provider: 12/29/17 09:53 Source: Patient Mode of Arrival: Ambulatory Limitations: No limitations - History of Present Illness MD Complaint: Abdominal pain Onset/Timin -: Hour(s) Severity scale (1-10): 9 Quality: Aching Consistency: Constant, Intermittent - Related Data Previous Rx's Medication Instructions Recorded Ondansetron [Zofran Odt] 4 mg PO Q8H PRN #10 tab.rapdis 08/08/17 Hydrochlorothiazide [Hctz] 12.5 mg PO DAILY #60 tablet 12/31/17 Hyoscyamine Sulfate [Levsin Odt] 0.125 mg SL Q4H PRN #30 tab.subl 12/31/17 Pantoprazole Sodium [Protonix] 40 mg PO DAILY #60 tablet. 12/31/17 Allergies Allergy/AdvReac Type Severity Reaction Status Date / Time No Known Drug Allergies Allergy Verified 12/29/17 10:02 Travel Screening - Travel/Exposure Within Last 30 Days Have you traveled within the last 30 days?: No - Travel/Exposure Within Last Year Have you traveled outside the [place] in the last year?: No - Additonal Travel Details Have you been exposed to anyone with a communicable illness?: No - Travel Symptoms Symptom Screening: None Review of Systems Reviewed: No additional complaints except as noted below Constitutional: Denies: Chills, Fever, Malaise, Night sweats, Weakness Eyes: Denies: Eye discharge, Eye pain, Photophobia, Vision change ENT: Denies: Congestion, Dental pain, Ear pain, Epistaxis, Hearing loss, Throat pain Respiratory: Denies: Cough, Dyspnea, Hemoptysis, Wheezes Cardiovascular: Denies: Arrhythmia, Chest pain, Dyspnea on exertion, Edema, Murmurs, Orthopnea, Palpitations, Paroxysmal nocturnal dyspnea Endocrine: Denies: Fatigue, Heat or cold intolerance, Polydipsia, Polyuria Gastrointestinal: Reports: As per HPI, Abdominal pain, Diarrhea, Nausea, Vomiting Genitourinary: Denies: Discharge, Dysuria, Frequency, Hematuria, Testicular pain , Testicular mass, Urgency Musculoskeletal: Denies: Arthralgia, Back pain, Gout, Joint swelling, Myalgia Skin: Denies: Bruising, Rash Neurological: Denies: Abnormal gait, Confusion, Headache, Numbness, Paresthesias , Seizure, Tingling, Tremors, Weakness Psychiatric: Denies: Anxiety, Auditory hallucinations, Depression, Homicidal thoughts, Suicidal thoughts, Visual hallucinations Hematological/Lymphatic: Reports: As per HPI. Denies: Anemia, Blood Clots, Easy bleeding, Easy bruising, Swollen glands Past Medical History - SOCIAL HISTORY Smoking Status: Former smoker Alcohol Use: None Drug Use: None - RESPIRATORY Hx Respiratory Disorders: No - CARDIOVASCULAR Hx Cardio Disorders: No - NEURO Hx Neuro Disorders: No - GI Hx GI Disorders: Yes Hx Abdominal Pain: Yes (08/06/17, resolved now) Hx Pancreatitis: Yes (pancreas inflamed from the food posioning 08/06/17) Hx Rectal Bleeding: No Comment:: was in [facility] inpatient for food posioning 08/06-08/08/17 - Hx Genitourinary Disorders: No - ENDOCRINE Hx Endocrine Disorders: No - MUSCULOSKELETAL Hx Musculoskeletal Disorders: No - PSYCH Hx Psych Problems: No - HEMATOLOGY/ONCOLOGY Hx Hematology/Oncology Disorders: No Family Medical History Any Significant Family History?: Yes Hx Cancer: Father *Cancer Comment: lung Hx Resp Disorders: Father, Mother *Resp Comment: mother-copd, father lung cancer Physical Exam - General General Appearance: Alert, Oriented x3, Cooperative, Mild distress Limitations: No limitations - Head Head exam: Normal inspection - Eye Eye exam: Normal appearance, PERRL, EOMI Pupils: Normal accommodation - ENT ENT exam: Normal exam, Mucous membranes moist, Normal external ear exam, Normal orophraynx, TM's normal bilaterally Ear exam: Normal external inspection. negative: External canal tenderness Nasal Exam: Normal inspection. negative: Discharge, Sinus tenderness Mouth exam: Normal external inspection, Tongue normal Teeth exam: Normal inspection. negative: Dental caries Throat exam: Normal inspection. negative: Tonsillar erythema, Tonsillar exudate - Neck Neck exam: Normal inspection, Full ROM. negative: Tenderness - Respiratory Respiratory exam: Normal lung sounds bilaterally. negative: Respiratory distress - Cardiovascular Cardiovascular Exam: Regular rate, Normal rhythm, Normal heart sounds - GI/Abdominal GI/Abdominal exam: Soft, Normal bowel sounds, Tenderness - Rectal Rectal exam: Deferred - exam: Deferred - Extremities Extremities exam: Normal inspection, Full ROM, Normal capillary refill. negative: Tenderness - Back Back exam: Reports: Normal inspection, Full ROM. Denies: Muscle spasm, Rash noted, Tenderness - Neurological Neurological exam: Alert, CN II-XII intact, Normal gait, Oriented X3 - Psychiatric Psychiatric exam: Normal affect, Normal mood - Skin Skin exam: Dry, Intact, Normal color, Warm Course Vital Signs 12/29/17 12/29/17 12/29/17 09:58 11:15 12:36 Temperature 98.1 F 100.1 F H 100.5 F H Pulse Rate 71 Pulse Rate [ 67 84 Pulse Ox Probe] Respiratory 20 20 18 Rate Blood Pressure 191/116 Blood Pressure 185/112 163/112 [Right Arm] Pulse Ox 99 100 97 12/29/17 12/29/17 12/29/17 14:04 15:25 15:45 Temperature 99.5 F 98.4 F 99.0 F Pulse Rate 71 Pulse Rate [ 68 76 Pulse Ox Probe] Respiratory 16 18 20 Rate Blood Pressure 118/88 Blood Pressure 168/107 146/105 [Right Arm] Pulse Ox 98 96 96 Medical Decision Making - Lab Data Result diagrams: 12/31/17 06:15 12/31/17 06:15 Lab Results 12/29/17 12/29/17 Range/Units 10:10 10:10 WBC 13.0 H (4.2-12.2) K/uL RBC 5.47 (4.40-5.70) M/uL Hgb 15.7 (14.0-18.0) gm/dl Hct 47.0 (42.0-52.0) % MCV 85.9 (81-97) fl MCH 28.7 (27-33) pg MCHC 33.4 (32-36) g/dl RDW 13.1 (11.5-14.5) % Plt Count 363 (130-400) K/uL MPV 8.9 (7.4-10.4) fl Neutrophils % 85.0 H (47-80) % Band Neutrophils % 5.0 (0-5) % Lymphocytes % 5.8 L (16-45) % Monocytes % 2.7 (0-9) % Eosinophils % 0.1 (0-6) % Basophils % 0.2 (0-6) % Lymphocytes 6.0 L (16-45) % Monocytes 4.0 (0-9) % Basophils 0.0 (0-6) % Eosinophil Count 0.0 (0-6) % Sodium 142 (136-145) mmol/L Potassium 3.6 (3.4-4.5) mmol/L Chloride 100 (98-107) mmol/L Carbon Dioxide 25.0 (22-29) mmol/L Anion Gap 17.0 H (7-16) BUN 21 H (6-20) mg/dL Creatinine 1.0 (0.7-1.2) mg/dL Estimated GFR > 60 mL/min Random Glucose 135 H (74-109) mg/dL Calcium 9.3 (8.6-10.0) mg/dL Total Bilirubin 0.50 (0.2-1.0) mg/dL Direct Bilirubin < 0.2 (0-0.3) mg/dL AST 15 (10.0-50.0) U/L ALT 12 (<41) U/L Alkaline Phosphatase 65 (40-129) U/L Total Protein 6.9 (6.6-8.7) g/dL Albumin 4.5 (4.0-5.0) g/dL Lipase 27 (13-60) U/L Disposition Disposition: Discharge Clinical Impression: Intractable abdominal pain Nausea & vomiting Qualifiers: Vomiting type: unspecified Vomiting Intractability: intractable Qualified Code( s): R11.2 - Nausea with vomiting, unspecified Disposition: Still a Patient at [facility] Condition: (1) Good Quality - Quality Measures Quality Measures: N/A - Blood Pressure Screening Does Patient Have Any of the Following: No Blood Pressure Classification: Pre-Hypertensive BP Reading Systolic Measurement: 118 Diastolic Measurement: 88 Screening for High Blood Pressure: < Pre-Hypertensive BP, F/U Documented > [ G8950] Pre-Hypertensive Follow-up Interventions: Follow-up with rescreen every year.
== END 2017-12-31 15:27 | disposition home or self-care (01) ==
LOC: ER 09:47 → MEDSURG 15:35
PROVIDERS: ADMIT Internal Medicine; ATTEND Internal Medicine
DX: R10.13 Epigastric pain (principal); R11.2 Nausea with vomiting, unspecified; K22.70 Barrett's esophagus without dysplasia; K85.90 Acute pancreatitis without necrosis or infection, unspecified; Z87.891 Personal history of nicotine dependence
CPT/HCPCS: 74177; 80048; 80053; 80076; 82150; 83690; 85025; 85027; 93005; 93010; 96374; 96375; 99217; 99220; 99285; C9113; J2405; J2550; J7030

== ENCOUNTER 2018-07-26 10:05 | Emergency (ER) | payer OTHER ==
[2018-07-26] MEDS ORDERED: ONDANSETRON HCL IV 4 MG/2 ML VIAL IVP ONE (10:28)
[2018-07-26] MEDS ORDERED: HYDROMORPHONE HCL 2 MG/ML VIAL IVP ONE (10:34)
[2018-07-26] MEDS ORDERED: 0.9 % SODIUM CHLORIDE 1,000 ML BAG IV ONE (10:38)
--- NOTE | 2018-07-26 10:57 | Emergency Department Record ---
History of Present Illness - General Chief complaint: Vomiting Stated complaint: VOMITING Time Seen by Provider: 07/26/18 10:29 Source: Patient, RN notes reviewed Mode of Arrival: Ambulatory - History of Present Illness Initial comments: 57 year old developed abdominal pain and vomiting last night and diarrhea and vomiting about 15 to 20 times and he tried zofran SL but it didn't work. PMH pancreatitis about one year ago and he doesn't drink alcohol but smokes three joints of marijuana a day. Others in his family not vomiting and they ate the same food MD complaint: Abdominal pain, Diarrhea, Vomiting Onset/Timin -: Hour(s) Associated Symptoms: Fever/chills, Nausea/vomiting, Other - Related Data Previous Rx's Medication Instructions Recorded Promethazine HCl [Phenergan] 25 mg PO Q6HR #20 tablet 07/26/18 Allergies Allergy/AdvReac Type Severity Reaction Status Date / Time No Known Drug Allergies Allergy Verified 07/26/18 10:18 Travel Screening - Travel/Exposure Within Last 30 Days Have you traveled within the last 30 days?: No - Travel/Exposure Within Last Year Have you traveled outside the [place] in the last year?: No - Additonal Travel Details Have you been exposed to anyone with a communicable illness?: No Review of Systems Reviewed: No additional complaints except as noted below Constitutional: Reports: As per HPI. Denies: Chills, Fever, Malaise, Night sweats, Weakness, Weight change Eyes: Reports: As per HPI. Denies: Eye discharge, Eye pain, Photophobia, Vision change ENT: Reports: As per HPI. Denies: Congestion, Dental pain, Ear pain, Epistaxis , Hearing loss, Throat pain Respiratory: Reports: As per HPI. Denies: Cough, Dyspnea, Hemoptysis, Stridor, Wheezes Cardiovascular: Reports: As per HPI. Denies: Arrhythmia, Chest pain, Dyspnea on exertion, Edema, Murmurs, Orthopnea, Palpitations, Paroxysmal nocturnal dyspnea, Rheumatic Fever, Syncope Endocrine: Reports: As per HPI. Denies: Fatigue, Heat or cold intolerance, Polydipsia, Polyuria Gastrointestinal: Reports: As per HPI, Abdominal pain, Diarrhea, Vomiting. Denies: Constipation, Hematemesis, Hematochezia, Melena, Nausea Genitourinary: Reports: As per HPI. Denies: Dysuria, Frequency, Hematuria, Incontinence, Retention, Testicular pain, Testicular mass, Urgency Musculoskeletal: Reports: As per HPI. Denies: Arthralgia, Back pain, Gout, Joint swelling, Myalgia, Neck pain Skin: Reports: As per HPI. Denies: Bruising, Change in color, Change in hair/ nails, Lesions, Pruritus, Rash Neurological: Reports: As per HPI. Denies: Abnormal gait, Confusion, Headache, Numbness, Paresthesias, Seizure, Tingling, Tremors, Vertigo, Weakness Psychiatric: Reports: As per HPI. Denies: Anxiety, Auditory hallucinations, Depression, Homicidal thoughts, Suicidal thoughts, Visual hallucinations Hematological/Lymphatic: Reports: As per HPI. Denies: Anemia, Blood Clots, Easy bleeding, Easy bruising, Swollen glands Past Medical History - SOCIAL HISTORY Smoking Status: Former smoker Alcohol Use: Rare Drug Use: Heavy Drug Use Detail:: Marijuana - RESPIRATORY Hx Respiratory Disorders: No - CARDIOVASCULAR Hx Cardio Disorders: No - NEURO Hx Neuro Disorders: No - GI Hx GI Disorders: Yes Hx Abdominal Pain: Yes (08/06/17, resolved now) Hx Pancreatitis: Yes (pancreas inflamed from the food posioning 08/06/17) Hx Rectal Bleeding: No Comment:: was in [facility] inpatient for food posioning 08/06-08/08/17 - Hx Genitourinary Disorders: No - ENDOCRINE Hx Endocrine Disorders: No - MUSCULOSKELETAL Hx Musculoskeletal Disorders: No - PSYCH Hx Psych Problems: No - HEMATOLOGY/ONCOLOGY Hx Hematology/Oncology Disorders: No Family Medical History Any Significant Family History?: No Hx Cancer: Father *Cancer Comment: lung Hx Resp Disorders: Father, Mother *Resp Comment: mother-copd, father lung cancer Physical Exam - General General Appearance: Alert, Oriented x3, Cooperative, Moderate distress - Head Head exam: Normal inspection - Eye Eye exam: Normal appearance, PERRL Pupils: Normal accommodation - ENT ENT exam: Normal exam, Mucous membranes moist, Normal external ear exam, Normal orophraynx, TM's normal bilaterally Ear exam: Normal external inspection. negative: External canal tenderness Nasal Exam: Normal inspection. negative: Discharge, Sinus tenderness Mouth exam: Normal external inspection, Tongue normal Teeth exam: Normal inspection. negative: Dental caries Throat exam: Normal inspection. negative: Tonsillar erythema, Tonsillar exudate - Neck Neck exam: Normal inspection, Full ROM. negative: Tenderness - Respiratory Respiratory exam: Normal lung sounds bilaterally. negative: Respiratory distress - Cardiovascular Cardiovascular Exam: Regular rate, Normal rhythm, Normal heart sounds - GI/Abdominal GI/Abdominal exam: Soft, Normal bowel sounds, Guarding, Tenderness (LUQ abdominal pain ,significant guarding) - Rectal Rectal exam: Deferred - exam: Deferred - Extremities Extremities exam: Normal inspection, Full ROM, Normal capillary refill. negative: Tenderness - Back Back exam: Reports: Normal inspection, Full ROM. Denies: Muscle spasm, Rash noted, Tenderness - Neurological Neurological exam: Alert, Normal gait, Oriented X3, Reflexes normal - Psychiatric Psychiatric exam: Normal affect, Normal mood - Skin Skin exam: Dry, Intact, Normal color, Warm Course Vital Signs 07/26/18 10:10 Temperature 99.2 F Pulse Rate 68 Respiratory 20 Rate Blood Pressure 172/103 Pulse Ox 98 - Reevaluation(s) Reevaluation #1: feeling better 07/26/18 12:26 Reevaluation #2: offered patient norco and he refused it and so I recommended he use tylenol for pain. 07/26/18 12:27 Medical Decision Making - Data Complexity MDM Data: Labs Ordered and/or Reviewed (wbc 12,400), X-Ray Ordered and/or Reviewed (CT of abd negative for acute findings) - Lab Data Result diagrams: 07/26/18 10:30 07/26/18 10:30 Disposition Clinical Impression: Marijuana use Abdominal pain Qualifiers: Abdominal location: left upper quadrant Qualified Code(s): R10.12 - Left upper quadrant pain Nausea & vomiting Qualifiers: Vomiting type: unspecified Vomiting Intractability: non-intractable Qualified Code(s): R11.2 - Nausea with vomiting, unspecified Disposition: Home, Self-Care Condition: (1) Good Instructions: Acute Nausea and Vomiting (ED), Abdominal Pain (ED) Additional Instructions: follow up with family DR in 5 to 7 days sooner if worse or return to the ED clear liquids for 24 hours than increase diet slowly stop marijuana tylenol for pain follow direction on the boffle and not to go over 4 gms in 24 hours Prescriptions: Promethazine HCl [Phenergan] 25 mg PO Q6HR #20 tablet Forms: Patient Portal Access Time of Disposition: 12:28 Quality - Quality Measures Quality Measures: N/A - Blood Pressure Screening Does Patient Have Any of the Following: No Blood Pressure Classification: Hypertensive Reading Systolic Measurement: 172 Diastolic Measurement: 103 Screening for High Blood Pressure: < First Hypertensive BP, F/U Documented > [ G8950] First Hypertensive Follow-up Interventions: Referral to alternative/primary care provider.
[2018-07-26 10:58] LABS: HEMATOCRIT 47.9 % (42.0-52.0); MEAN CELL VOLUME 85.5 fl (81-97); MEAN CORPUSCULAR HEMOGLOBIN 28.6 pg (27-33); MEAN CORPUSCULAR HGB CONC 33.4 g/dl (32-36); MEAN PLATELET VOLUME 9.3 fl (7.4-10.4); PLATELET COUNT 413 K/uL (130-400); RED CELL DISTRIBUTION WIDTH 13.8 % (11.5-14.5); WHITE BLOOD COUNT W/O DIFF 12.4 K/uL (4.2-12.2)
[2018-07-26] MEDS ORDERED: PROMETHAZINE HCL 25 MG in 0.9 % SODIUM CHLORIDE 100ML 100 ML IVPB ONE (11:06)
[2018-07-26 11:07] LABS: BLOOD UREA NITROGEN 16 mg/dL (6-20); CREATININE 0.9 mg/dL (0.7-1.2); EST GLOMERULAR FILTRATION RATE > 60 mL/min
[2018-07-26 11:08] LABS: LIPASE 22 U/L (13-60); TOTAL PROTEIN 7.2 g/dL (6.6-8.7)
[2018-07-26 11:10] LABS: GLUCOSE,RANDOM 180 mg/dL (74-109)
[2018-07-26 11:12] LABS: ALT/SGPT 14 U/L (<41)
[2018-07-26 11:13] LABS: ALBUMIN 4.7 g/dL (4.0-5.0); ALKALINE PHOSPHATASE 68 U/L (40-129); AST/SGOT 13 U/L (10.0-50.0); BILIRUBIN,DIRECT < 0.2 mg/dL (0-0.3)
[2018-07-26] MEDS ORDERED: 0.9 % SODIUM CHLORIDE 1000ML 1,000 ML IV SCH (11:15)
[2018-07-26 11:48] LABS: URINE APPEARANCE CLEAR; URINE BILIRUBIN NEGATIVE (NEGATIVE); URINE BLOOD TRACE-I (NEGATIVE); URINE COLOR YELLOW; URINE KETONE TRACE (NEGATIVE); URINE LEUKOCYTE ESTERASE NEGATIVE (NEGATIVE); URINE NITRITE NEGATIVE (NEGATIVE); URINE PROTEIN NEGATIVE (NEGATIVE); URINE UROBILINOGEN 0.2 E.U./dL (0.20 - 1.00)
[2018-07-26 11:57] LABS: URINE EPITHELIAL CELLS 0 - 2 (FEW); URINE WBC NONE SEEN (0-2/hpf)
[2018-07-26 11:58] LABS: URINE BACTERIA NONE SEEN
--- NOTE | 2018-07-30 06:10 | CT SCAN REPORT ---
EXAM: NONCONTRAST CT OF THE ABDOMEN AND PELVIS HISTORY: LEFT SIDED ABDOMINAL PAIN, NAUSEA AND VOMITING. TECHNIQUE: Noncontrast CT of the abdomen and pelvis was obtained. Comparison: CT of the abdomen and pelvis 12/29/17. FINDINGS: The lung bases are clear. Unremarkable noncontrast appearance of the liver, gallbladder, right adrenal gland, spleen, and pancreas. Low attenuation 11 mm left adrenal gland nodule compatible with lipid rich adrenal adrenal adenoma. Chronic prominence of the left renal pelvis, similar from prior examination; may represent anatomic variant extrarenal pelvis. No definite hydronephrosis. No intrarenal or ureteral calculi detected. Unremarkable appearance of the urinary bladder. Prosthetic calcifications. Sigmoid colon diverticulosis without evidence of acute diverticulitis. The stomach and small bowel are nondilated. Tiny hiatal hernia. No free air or free fluid. Small fat containing right inguinal hernia. Abdominal aortic calcification without evidence of aneurysm. No acute osseous findings. IMPRESSION: 1. NO ACUTE FINDINGS IN THE ABDOMEN AND PELVIS. 2. COLONIC DIVERTICULOSIS WITHOUT EVIDENCE OF ACUTE DIVERTICULITIS. 3. SMALL FAT CONTAINING RIGHT INGUINAL HERNIA. 4. SMALL BENIGN LIPID RICH LEFT ADRENAL ADENOMA. JOB NUMBER: [id number] [facility]
== END 2018-07-26 12:45 | disposition home or self-care (01) ==
LOC: ER 10:05
DX: R10.12 Left upper quadrant pain (principal); R11.2 Nausea with vomiting, unspecified; R19.7 Diarrhea, unspecified; F12.90 Cannabis use, unspecified, uncomplicated; F17.210 Nicotine dependence, cigarettes, uncomplicated
CPT/HCPCS: 99284 ×2; 96365; 96375; 96361; 83690; 80076; 80048; 81001; 85027; 74176; J2405; J1170; J2550; J7030

== ENCOUNTER 2019-05-05 14:31 | Emergency (ER) | payer OTHER ==
[2019-05-05] MEDS ORDERED: DEXTROSE 5%-LACTATED RINGERS 1,000 ML IV PRN (14:52)
[2019-05-05] MEDS ORDERED: PROMETHAZINE HCL 25 MG/ML VIAL IV ONE (14:52)
--- NOTE | 2019-05-05 14:57 | Emergency Department Record ---
History of Present Illness - General Chief complaint: Vomiting Stated complaint: VOMITING Time Seen by Provider: 05/05/19 14:46 Source: Patient Mode of Arrival: Ambulatory Limitations: No limitations - History of Present Illness Initial comments: Pt to ED from home with complaint of vomiting onset at 8:30AM today, 6 hours [employer]. Emesis is gastric contents without blood. Hx of similar one year ago. Possible pancreatitis diagnosis. Pt denies diarrhea, fever, chills. Has crampy pain to epigastric region. No new meds, travel, foods. Pt admits to daily marijuana use. No sick contacts. Onset/Timin -: Hour(s) Description of Vomiting: Watery Location: LUQ Radiation: None Severity: Moderate Severity scale (1-10): 8 Quality: Cramping Consistency: Constant Improves with: None Worsens with: Vomiting Associated Symptoms: Nausea/vomiting - Related Data Home Medications Medication Instructions Recorded Confirmed Last Taken Hyoscyamine Sulfate 0.125 mg PO Q4H PRN 05/05/19 05/05/19 Unknown Previous Rx's Medication Instructions Recorded Promethazine HCl [Phenergan] 25 mg RC QID PRN 3 Days #10 05/05/19 supp.rect Allergies Allergy/AdvReac Type Severity Reaction Status Date / Time No Known Drug Allergies Allergy Unverified 10/29/18 08:39 Travel Screening - Travel/Exposure Within Last 30 Days Have you traveled within the last 30 days?: No Review of Systems Constitutional: Denies: Chills, Fever, Weakness Eyes: Denies: Eye pain, Vision change ENT: Denies: Congestion, Throat pain Respiratory: Denies: Cough, Dyspnea Cardiovascular: Denies: Arrhythmia, Chest pain Endocrine: Denies: Fatigue, Polyuria Gastrointestinal: Reports: As per HPI, Abdominal pain, Nausea, Vomiting. Denies: Diarrhea Genitourinary: Denies: Dysuria Musculoskeletal: Denies: Arthralgia, Back pain Skin: Denies: Bruising, Rash Neurological: Denies: Confusion, Headache, Tremors Psychiatric: Denies: Anxiety, Suicidal thoughts Hematological/Lymphatic: Denies: Anemia Past Medical History - SOCIAL HISTORY Smoking Status: Former smoker - RESPIRATORY Hx Respiratory Disorders: No - CARDIOVASCULAR Hx Cardio Disorders: No - NEURO Hx Neuro Disorders: No - GI Hx GI Disorders: Yes Hx Abdominal Pain: Yes (08/06/17, resolved now) Hx Pancreatitis: Yes (pancreas inflamed from the food posioning 08/06/17) Hx Rectal Bleeding: No Comment:: was in [facility] inpatient for food posioning 08/06-08/08/17 - Hx Genitourinary Disorders: No - ENDOCRINE Hx Endocrine Disorders: No - MUSCULOSKELETAL Hx Musculoskeletal Disorders: No - PSYCH Hx Psych Problems: No - HEMATOLOGY/ONCOLOGY Hx Hematology/Oncology Disorders: No Family Medical History Any Significant Family History?: Yes Hx Cancer: Father *Cancer Comment: lung Hx Resp Disorders: Father, Mother *Resp Comment: mother-copd, father lung cancer Physical Exam - General General Appearance: Alert, Oriented x3, Cooperative, Moderate distress Limitations: No limitations - Head Head exam: Atraumatic, Normocephalic - Eye Eye exam: Normal appearance, PERRL - ENT ENT exam: Mucous membranes dry Ear exam: Normal external inspection Nasal Exam: Normal inspection Mouth exam: Normal external inspection Teeth exam: Normal inspection - Neck Neck exam: Normal inspection, Full ROM. negative: Lymphadenopathy - Respiratory Respiratory exam: Normal lung sounds bilaterally. negative: Respiratory distress, Rhonchi - Cardiovascular Cardiovascular Exam: Regular rate, Normal rhythm. negative: Tachycardia - GI/Abdominal GI/Abdominal exam: Soft, Normal bowel sounds, Tenderness, Other (epigastric tenderness). negative: Distended, Guarding, Rebound - Rectal Rectal exam: Deferred - exam: Deferred - Extremities Extremities exam: Normal inspection - Back Back exam: Reports: Normal inspection - Neurological Neurological exam: Alert, Normal gait, Oriented X3 - Psychiatric Psychiatric exam: Normal affect, Normal mood - Skin Skin exam: Normal color. negative: Rash Course Vital Signs 05/05/19 14:37 Temperature 99.4 F Pulse Rate 65 Respiratory 20 Rate Blood Pressure 180/101 Pulse Ox 100 - Reevaluation(s) Reevaluation #1: 05/05/19 16:22 Labs normal. No improvement with 25mg Phenergan. EKG done with normal QT interval. Pt will try Haldol 5mg in 100cc NS over 30 min IVPB. Reassess after. in room to see patient and tehn left. She states she will return in one hour. Reevaluation #2: 05/05/19 17:19 Pt given 5mg Haldol IV after normal EKG. Sleeping under blanket, wakes and states he is Feeling better with no nausea. Temp now 101. Flu swab pending and tylenol 1000mg given. Reevaluation #3: 05/05/19 18:33 Pt again feels nausea. States he only feels better at home in a warm shower. There he has no nausea and is a able to drink. We discussed my concern for marijuana and he understands and agrees. Home with rectal meds for nausea and follow up. Procedures - EKG Initial Date: 05/05/19 Time: 16:24 EKG: Normal EKG (QT 380) Medical Decision Making - Lab Data Result diagrams: 05/05/19 15:05 05/05/19 15:05 Disposition Disposition: Discharge Clinical Impression: Cannabinoid hyperemesis syndrome Disposition: Home, Self-Care Condition: (2) Stable Instructions: Acute Nausea and Vomiting (ED) Additional Instructions: Limit marijuana use. Phenergan suppository for nausea. Warm showers as needed. Clear liquids. Family doctor in 1-2 days Return to the ED as needed. Prescriptions: Promethazine HCl [Phenergan] 25 mg RC QID PRN 3 Days #10 supp.rect PRN Reason: Nausea Forms: Patient Portal Access Time of Disposition: 18:38 Quality - Quality Measures Quality Measures: N/A - Blood Pressure Screening Does Patient Have Any of the Following: No Blood Pressure Classification: Hypertensive Reading Systolic Measurement: 180 Diastolic Measurement: 101 Screening for High Blood Pressure: < Pre-Hypertensive BP, F/U Documented > [G8950] Pre-Hypertensive Follow-up Interventions: Follow-up with rescreen every year.
[2019-05-05 15:25] LABS: ABSOLUTE NEUTROPHIL COUNT 8.96; HEMATOCRIT 47.8 % (42.0-52.0); HEMOGLOBIN 15.9 gm/dl (14.0-18.0); MEAN CELL VOLUME 86.4 fl (81-97); MEAN CORPUSCULAR HEMOGLOBIN 28.8 pg (27-33); MEAN CORPUSCULAR HGB CONC 33.3 g/dl (32-36); PLATELET COUNT 440 K/uL (130-400); RED BLOOD COUNT 5.53 M/uL (4.40-5.70); RED CELL DISTRIBUTION WIDTH 13.5 % (11.5-14.5); WHITE BLOOD COUNT W/O DIFF 9.7 K/uL (4.2-12.2)
[2019-05-05 15:38] LABS: BLOOD UREA NITROGEN 17 mg/dL (6-20); CREATININE 0.9 mg/dL (0.7-1.2); EST GLOMERULAR FILTRATION RATE > 60 mL/min
[2019-05-05 15:39] LABS: LIPASE 20 U/L (13-60)
[2019-05-05 15:41] LABS: AMYLASE 54 U/L (28-100); GLUCOSE,RANDOM 180 mg/dL (74-109)
[2019-05-05] MEDS ORDERED: SODIUM CHLORIDE 0.9% IVPB ONE (16:09)
[2019-05-05] MEDS ORDERED: HALOPERIDOL LACTATE IVPB ONE (16:09)
[2019-05-05 17:00] LABS: URINE APPEARANCE CLEAR; URINE BILIRUBIN NEGATIVE (NEGATIVE); URINE COLOR YELLOW; URINE KETONE 80 mg/dL (NEGATIVE); URINE PROTEIN NEGATIVE (NEGATIVE); URINE UROBILINOGEN 0.2 E.U./dL (0.20 - 1.00)
[2019-05-05 17:01] LABS: URINE BLOOD TRACE-LYSED (NEGATIVE); URINE EPITHELIAL CELLS NONE SEEN (FEW); URINE LEUKOCYTE ESTERASE NEGATIVE (NEGATIVE); URINE NITRITE NEGATIVE (NEGATIVE); URINE RBC 0 - 2 (NONE SEEN); URINE WBC 0 - 2 (0-2/hpf)
[2019-05-05] MEDS ORDERED: ACETAMINOPHEN 500 MG TABLET PO ONE (17:14)
[2019-05-05 17:39] LABS: INFLUENZA A NEGATIVE (NEGATIVE); INFLUENZA B NEGATIVE (NEGATIVE)
[2019-05-05] MEDS ORDERED: KETOROLAC 30 MG/ML VIAL IVP ONE (18:33)
== END 2019-05-05 19:06 | disposition home or self-care (01) ==
LOC: ER 14:31
DX: F12.288 Cannabis dependence with other cannabis-induced disorder (principal); R11.2 Nausea with vomiting, unspecified; R10.13 Epigastric pain; R03.0 Elevated blood-pressure reading, without diagnosis of hypertension; Z87.891 Personal history of nicotine dependence; R73.09 Other abnormal glucose
CPT/HCPCS: 80048; 81001; 82150; 83036; 83690; 85027; 87400; 93005; 93010; 96361; 96365; 96375; 99284; J1885; J2550

== ENCOUNTER 2019-06-16 08:02 | Day surgery (SDC) | payer OTHER ==
[2019-06-16] MEDS ORDERED: PROPOFOL 10 MG/ML VIAL IV ONE (08:03)
[2019-06-16] MEDS ORDERED: FENTANYL PF 100MCG/2ML VIAL IV ONE (08:03)
[2019-06-16] MEDS ORDERED: LIDOCAINE 2% MDV (20MG/ML) 20ML VIAL IV ONE (08:03)
--- NOTE | 2019-06-17 06:01 | Operative Note ---
OPERATION: ESOPHAGOGASTRODUODENOSCOPY with multiple biopsies. 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 The patient returns at this time after 1 year for surveillance. He denies any pyrosis. He does have episodes of vomiting probably related to cannabis hyperemesis syndrome. ANESTHESIA: Intravenous sedation was administered by the department of anesthesiology and included Diprivan titrated to effect. PROCEDURE: Following informed consent from this alert individual, including a discussion of the risks and benefits of the procedure and an opportunity for the patient to ask questions, the patient was in the left lateral decubitus position. The Olympus [id number] video endoscope was inserted into the esophagus without resistance. The proximal esophagus had a normal appearance with normal folds and distensibility. The distal esophagus was unremarkable except for the squamocolumnar junction which was somewhat irregular and erythematous. The irregular mucosa extended 1 cm at most. Again, there was some evidence of mild distal esophagitis as well with erythema. The stomach was then entered and found to be unremarkable except for some minimal erythema at the prepyloric antrum. Biopsies from the stomach were obtained. The duodenal bulb, sweep, and descending duodenum were then examined in a serial fashion and found to be normal. The endoscope was then withdrawn back into the body of the stomach. Retroflexion accomplished following air insufflation failed to demonstrate any additional changes. The endoscope was then straightened and withdrawn back to the GE junction where multiple biopsies were taken from the distal esophageal segment to evaluate again for Woodall's epithelium and histology. After biopsy, the endoscope was then withdrawn back through a normal proximal esophagus and removed from the patient. He tolerated the procedure well and was returned to the recovery area in stable condition. IMPRESSION: 1. Irregular Z line with evidence of distal esophagitis extending approximately 1 cm in length. Multiple biopsies taken. 2. Minimal antral gastritis. RECOMMENDATION: Further recommendations will be forthcoming pending results of biopsy obtained today. If still evidence of Woodall's epithelium, then acid blockade treatment will be recommended. Further recommendations forthcoming pending biopsy. Followup will also with be Britt Hill MD. As always, thank you for allowing me to participate in the care of your patient. ELVIE
== END 2019-06-16 09:35 | disposition home or self-care (01) ==
LOC: HOP 08:02
PROVIDERS: ATTEND Internal Medicine Gastroenterology
DX: K22.70 Barrett's esophagus without dysplasia (principal); K20.9 Esophagitis, unspecified; K29.70 Gastritis, unspecified, without bleeding; K31.89 Other diseases of stomach and duodenum; K21.9 Gastro-esophageal reflux disease without esophagitis; I10 Essential (primary) hypertension
CPT/HCPCS: 43239; 00731; J3010